=== PATIENT | male | born 1985 | race Caucasian/White ===

== ENCOUNTER 2017-09-13 19:19 | Observation (INO) ==
[2017-09-13] MEDS ORDERED: 0.9 % Sodium Chloride 1,000 ML IVC ONE (19:24)
[2017-09-13 19:52] LABS: Basophils # 0.1 K/mcL (0.0-0.2); Basophils % 0.7 %; Eosinophils # 0.3 K/mcL (0.0-0.6); Eosinophils % 2.4 %; Hemoglobin 15.4 g/dL (12.9-16.9); Immature Granulocytes % 0.4 % (0-4); Lymphocytes # 3.4 K/mcL (0.6-4.6); Lymphocytes % 32.7 %; Mean Corpuscular HGB Conc 35.8 g/dL (31.6-35.5); Mean Corpuscular Hemoglobin 30.3 pg (28.0-33.3); Mean Corpuscular Volume 84.6 fL (83.0-100.0); Mean Platelet Volume 9.9 fL (9.4-12.4); Monocytes % 9.2 %; Neutrophils # 5.7 K/mcL (1.6-8.9); Platelet Count 270 K/mcL (140-400); Red Blood Count 5.08 M/mcL (4.19-5.50); Red Cell Distribution Width 12.3 % (11.5-14.5); Segmented Neutrophils % 54.6 %
--- NOTE | 2017-09-13 19:54 | Emergency Department Note ---
Disposition Clinical Impression: Intentional overdose of drug in tablet form Disposition: Admitted As Inpatient Condition: Fair General Adult HPI - General Chief complaint: ED Overdose Stated complaint: beta sean overdose Time Seen by Provider: 09/13/17 19:24 Source: EMS Mode of arrival: ambulatory Limitations: no limitations Nursing Notes Reviewed: Yes Vital Signs Reviewed: Yes - History of Present Illness HPI Narrative: 32-year-old male presents via EMS for concerns of intentional overdose. Patient states he took 100 mg tablets of metoprolol approximately 10 of those around 4:00 this afternoon. Also took a few of his Serax. Around the same time. Patient denies history of suicidal or homicidal ideation. States that he "wanted to upset his ". Patient denies taking any other medications. Patient denies any chest pain or short of breath. Patient denies any headache. No nausea vomiting. No Abdominal pain. No history of drugs or alcohol. Pain Scale: 0 - Related Data Home Medications Medication Instructions Recorded Confirmed Duloxetine HCl [Cymbalta] 60 mg PO DAILY 09/13/17 09/13/17 Metoprolol Succinate 100 mg PO DAILY 09/13/17 09/13/17 Naproxen [Naprosyn] 500 mg PO Q12H PRN 09/13/17 09/13/17 Sumatriptan [Imitrex] 1 spray NS DAILY PRN 09/13/17 09/13/17 Allergies Allergy/AdvReac Type Severity Reaction Status Date / Time No Known Allergies Allergy Verified 09/13/17 19:29 Past Medical History - Past Medical History Medical history: Reports: hypertension Surgical history: Reports: no surgical history Psychiatric history: Reports: anxiety, depression - Social History Smoking Status: Never smoker Smokeless Tobacco Status: No Alcohol use: Reports: none Drug use: Reports: marijuana Physical Exam - General Limitations: no limitations General appearance: alert, in no apparent distress - Head Head exam: atraumatic, normocephalic, normal inspection - Eye Eye exam: Present: normal appearance, PERRL, EOMI. Absent: nystagmus, miosis, mydriasis - ENT ENT exam: normal exam, normal oropharynx, mucous membranes moist - Neck Neck exam: Present: normal inspection - Chest Chest inspection: Present: normal inspection, symmetric chest wall rise - Respiratory Respiratory exam: Present: normal lung sounds bilaterally. Absent: respiratory distress - Cardiovascular Cardiovascular exam: Present: regular rate, normal rhythm. Absent: systolic murmur - Abdominal Exam Abdominal exam: Present: soft, Non-Tender - Extremities Exam Extremities exam: Present: normal inspection, full ROM. Absent: tenderness, pedal edema - Back Exam Back exam: Present: normal inspection - Neurological Exam Neurological exam: Present: alert, oriented X3, CN II-XII intact - Psychiatric Psychiatric exam: Present: agitated, anxious - Skin Skin exam: Present: warm, dry, intact, normal color Course Course Narrative: Patient seen and examined upon arrival. There is low likelihood her suspicion the patient overdosed on beta blockers given his heart rate physical exam. - Consultations Consultation #1: Patient will be evaluated by psychiatry. Patient has have impulsivity and intermittent aggression. He is pink slipped. Concerns of self-harm. Time: 21:53 Vital Signs Temperature 98.6 F 09/13/17 19:21 Pulse Rate 71 09/13/17 19:21 Respiratory Rate 15 09/13/17 19:21 Blood Pressure 137/97 09/13/17 19:21 O2 Sat by Pulse Oximetry 95 09/13/17 19:21 Temperature 98.3 F 09/13/17 23:40 Pulse Rate 69 09/13/17 23:40 Respiratory Rate 16 09/13/17 23:40 Blood Pressure 135/96 09/13/17 23:40 O2 Sat by Pulse Oximetry 97 09/13/17 20:16 Oxygen Delivery Oxygen Delivery Room Air Medical Decision Making - [facility] Narrative Medical decision making narrative: he was evaluated by psychiatry and deemed the patient would benefit from inpatient hospitalization. Patient will be admitted. There is little concern or suspicion of the patient did take the second dose of metoprolol given his clinical exam. - Lab Data Result diagrams: 09/13/17 19:40 09/13/17 19:40 Lab Results 09/13/17 09/13/17 09/13/17 Range/Units 19:40 19:40 19:50 WBC 10.5 (4.3-11.1) K/mcL RBC 5.08 (4.19-5.50) M/mcL Hgb 15.4 (12.9-16.9) g/dL Hct 43.0 (37.5-50.1) % MCV 84.6 (83.0-100.0) fL MCH 30.3 (28.0-33.3) pg MCHC 35.8 H (31.6-35.5) g/dL RDW 12.3 (11.5-14.5) % Plt Count 270 (140-400) K/mcL MPV 9.9 (9.4-12.4) fL Immature Gran % 0.4 (0-4) % Seg Neutrophils % 54.6 % Lymphocytes % 32.7 % Monocytes % 9.2 % Eosinophils % 2.4 % Basophils % 0.7 % Neutrophils # 5.7 (1.6-8.9) K/mcL Lymphocytes # 3.4 (0.6-4.6) K/mcL Monocytes # 1.0 (0.0-1.3) K/mcL Eosinophils # 0.3 (0.0-0.6) K/mcL Basophils # 0.1 (0.0-0.2) K/mcL Sodium 136 (136-145) mEq/L Potassium 4.0 (3.5-5.1) mEq/L Chloride 100 (98-107) mEq/L Carbon Dioxide 28 (23-29) mEq/L BUN 16 (6-20) mg/dL Creatinine 0.77 (0.70-1.30) mg/dL Est GFR ( Amer) > 60 (> 60) Est GFR (Non-Af Amer) > 60 (> 60) BUN/Creatinine Ratio 21 (6-26) Glucose 100 (70-105) mg/dL Calculated Osmolality 283 (280-300) Calcium 9.6 (8.6-10.3) mg/dL Total Bilirubin 0.6 (0.3-1.0) mg/dL Direct Bilirubin 0.1 (0.0-0.2) mg/dL Indirect Bilirubin 0.5 (0.0-1.2) mg/dL AST 33 (13-39) Units/L ALT 54 H (7-52) Units/L Alkaline Phosphatase 93 (34-104) Units/L Serum Total Protein 7.3 (6.4-8.9) g/dL Albumin 4.1 (3.5-5.7) g/dL Globulin 3.2 (2.4-3.5) g/dL Albumin/Globulin Ratio 1.3 (1.1-2.2) Urine Color Yellow (Yellow) Urine Clarity Clear (Clear) Urine pH 6.0 (5.0-8.0) pH Units Ur Specific [place] 1.030 H (1.010-1.025) Urine Protein Negative (Neg-Trace) mg/dL Urine Glucose (UA) Normal (Normal) mg/dL Urine Ketones Negative (Negative) mg/dL Urine Blood Negative (Negative) Urine Nitrite Negative (Negative) Urine Bilirubin Negative (Negative) Urine Urobilinogen Normal (Normal) mg/dL Ur Leukocyte Esterase Negative (Negative) Salicylates < 5.0 L (15.0-30.0) mg/dL Urine Opiates Screen (Hwxsen=964) ng/mL Acetaminophen < 1.0 L (10-30) mcg/mL Ur Barbiturates Screen (Usxscn=026) ng/mL Ur Phencyclidine Scrn (Cutoff=25) ng/mL Ur Amphetamines Screen (Wyhioz=6556) ng/mL U Benzodiazepines Scrn (Ezsbdf=399) ng/mL Urine Cocaine Screen (Cutoff= 300) ng/mL U Marijuana (THC) Screen (Cutoff = 50) ng/mL Ethyl Alcohol < 10 (0-10) mg/dL 09/13/17 Range/Units 19:50 WBC (4.3-11.1) K/mcL RBC (4.19-5.50) M/mcL Hgb (12.9-16.9) g/dL Hct (37.5-50.1) % MCV (83.0-100.0) fL MCH (28.0-33.3) pg MCHC (31.6-35.5) g/dL RDW (11.5-14.5) % Plt Count (140-400) K/mcL MPV (9.4-12.4) fL Immature Gran % (0-4) % Seg Neutrophils % % Lymphocytes % % Monocytes % % Eosinophils % % Basophils % % Neutrophils # (1.6-8.9) K/mcL Lymphocytes # (0.6-4.6) K/mcL Monocytes # (0.0-1.3) K/mcL Eosinophils # (0.0-0.6) K/mcL Basophils # (0.0-0.2) K/mcL Sodium (136-145) mEq/L Potassium (3.5-5.1) mEq/L Chloride (98-107) mEq/L Carbon Dioxide (23-29) mEq/L BUN (6-20) mg/dL Creatinine (0.70-1.30) mg/dL Est GFR ( Amer) (> 60) Est GFR (Non-Af Amer) (> 60) BUN/Creatinine Ratio (6-26) Glucose (70-105) mg/dL Calculated Osmolality (280-300) Calcium (8.6-10.3) mg/dL Total Bilirubin (0.3-1.0) mg/dL Direct Bilirubin (0.0-0.2) mg/dL Indirect Bilirubin (0.0-1.2) mg/dL AST (13-39) Units/L ALT (7-52) Units/L Alkaline Phosphatase (34-104) Units/L Serum Total Protein (6.4-8.9) g/dL Albumin (3.5-5.7) g/dL Globulin (2.4-3.5) g/dL Albumin/Globulin Ratio (1.1-2.2) Urine Color (Yellow) Urine Clarity (Clear) Urine pH (5.0-8.0) pH Units Ur Specific [place] (1.010-1.025) Urine Protein (Neg-Trace) mg/dL Urine Glucose (UA) (Normal) mg/dL Urine Ketones (Negative) mg/dL Urine Blood (Negative) Urine Nitrite (Negative) Urine Bilirubin (Negative) Urine Urobilinogen (Normal) mg/dL Ur Leukocyte Esterase (Negative) Salicylates (15.0-30.0) mg/dL Urine Opiates Screen Negative (Wrxyuw=163) ng/mL Acetaminophen (10-30) mcg/mL Ur Barbiturates Screen Negative (Fvlbkv=418) ng/mL Ur Phencyclidine Scrn Negative (Cutoff=25) ng/mL Ur Amphetamines Screen Negative (Jxvwda=8143) ng/mL U Benzodiazepines Scrn Positive H (Cyfuid=121) ng/mL Urine Cocaine Screen Negative (Cutoff= 300) ng/mL U Marijuana (THC) Screen Negative (Cutoff = 50) ng/mL Ethyl Alcohol (0-10) mg/dL - EKG Data EKG #1 EKG attestation: Yes I reviewed and interpreted this EKG. EKG shows normal: sinus rhythm Rate: normal Rhythm: NSR [place]/QRS: normal Voltage: c/w LVH Heart block present: 1st Degree T wave inversions noted in: III, v1 Interpretation: no acute changes Attestation Statement - Attestation Attestation: I examined this patient and my medical decision-making was reviewed with the Resident Physician. I agree with the documented findings, disposition and treatment plan as described except to the extent set forth below. Patient was suicidal. Although he gives various stories he denies taking any medications. He does have impulsive behavior and history of suicidality. Plan to admit for psychiatric evaluation. There was no overdose. The patient has no hemodynamic instability.
[2017-09-13 20:04] LABS: Bilirubin,Urine Negative (Negative); Blood,Urine Negative (Negative); Clarity,Urine Clear (Clear); Color,Urine Yellow (Yellow); Glucose,Urine (UA) Normal (Normal); Ketones,Urine Negative (Negative); Leukocyte Esterase,Urine Negative (Negative); Nitrite,Urine Negative (Negative); Protein,Urine Negative (Neg-Trace); Urobilinogen,Urine Normal (Normal)
[2017-09-13 20:07] LABS: Acetaminophen < 1.0 mcg/mL (10-30); Ethanol < 10 mg/dL (0-10); Salicylate < 5.0 mg/dL (15.0-30.0)
[2017-09-13 20:09] LABS: Amphetamine Screen,Urine Negative ng/mL (Cutoff=1000); Barbiturate Screen,Urine Negative ng/mL (Cutoff=200); Benzodiazepines Screen,Urine Positive ng/mL (Cutoff=200); Cannabinoid Screen,Urine Negative ng/mL (Cutoff = 50); Cocaine Screen,Urine Negative ng/mL (Cutoff= 300); Opiate Screen,Urine Negative ng/mL (Cutoff=300); Phencyclidine Screen,Urine Negative ng/mL (Cutoff=25)
[2017-09-13 20:16] LABS: Alanine Aminotransferase 54 Units/L (7-52); Albumin 4.1 g/dL (3.5-5.7); Albumin/Globulin Ratio 1.3 (1.1-2.2); Alkaline Phosphatase 93 Units/L (34-104); Aspartate Amino Transferase 33 Units/L (13-39); BUN/Creatinine Ratio 21 (6-26); Bilirubin,Direct 0.1 mg/dL (0.0-0.2); Bilirubin,Indirect 0.5 mg/dL (0.0-1.2); Bilirubin,Total 0.6 mg/dL (0.3-1.0); Blood Urea Nitrogen 16 mg/dL (6-20); Calcium 9.6 mg/dL (8.6-10.3); Carbon Dioxide 28 mEq/L (23-29); Chloride 100 mEq/L (98-107); Globulin 3.2 g/dL (2.4-3.5); Glucose 100 mg/dL (70-105); Osmolality,Calculated 283 (280-300); Sodium 136 mEq/L (136-145); Total Protein 7.3 g/dL (6.4-8.9); eGFR For African Americans > 60 (> 60); eGFR For Non-African Americans > 60 (> 60)
[2017-09-13] MEDS ORDERED: *HR* LORazepam 1 MG TABLET PO ONE (23:11)
[2017-09-13] MEDS ORDERED: Haloperidol Lactate 5 MG/ML VIAL IM PRN (23:44)
[2017-09-13] MEDS ORDERED: Mag Hydrox/Al Hydrox/Simeth 30 ML UDC PO PRN (23:44)
[2017-09-13] MEDS ORDERED: hydrOXYzine pamoate 25 MG CAPSULE PO PRN (23:44)
[2017-09-13] MEDS ORDERED: *HR* LORazepam 1 MG TABLET PO PRN (23:44)
[2017-09-13] MEDS ORDERED: *HR* LORazepam 2 MG/ML VIAL IM PRN (23:44)
[2017-09-13] MEDS ORDERED: Acetaminophen 325 MG TABLET PO PRN (23:44)
[2017-09-13] MEDS ORDERED: MOM Conc 10 ML UD.LIQ PO PRN (23:44)
[2017-09-13] MEDS ORDERED: traZODone 50 MG TABLET PO PRN (23:58)
[2017-09-14] MEDS ORDERED: SUMATRIPTAN NS PRN (00:03)
[2017-09-14] MEDS ORDERED: BuPROPion XL (24 HR) 150 MG TABLET PO SCH (09:30)
[2017-09-14] MEDS ORDERED: Metoprolol XL (24 HR) Succ 50 MG TAB.ER.24H PO SCH (09:30)
[2017-09-14 12:22] VITALS: BP 145/98
--- NOTE | 2017-09-14 14:03 | Discharge Summary ---
Date of Encounter: 09/14/17 Time of Encounter: 13:40 History of Present Illness Chief complaint: "I told my I was going to take a bunch of pills so she called the shoulder puncher Admitted From: Emergency Dept History of Present Illness: Mr. Cunningham is a 32 year old male who states he told his he was going to take a lot of pills after she moved out of the house and back to her mother's home, so she called the police on him. His moved out of the house yesterday after they had a disagreement when she found out he had been texting another woman that he works with. He denies having an affair. They are having problems in their marriage and she needed some space, so she went to her mother' s house. He states he told her that to manipulate her and get her attention to make her mad. He had no intention to hurt himself. He took a couple of extra Serax for his anxiety and went to bed to take a nap. "That's what it's prescribed for, to help me calm down." He never took any other pills like he said he did. (his UDS was positive for Benzos, but nothing else. His vitals remained normal/stable in the ED and have been normal here so he did not try to overdose on them) He states he had no intention to kill himself and denies ever having thoughts of SI/SIB/HI. He states he has a problem with depression and has as long as he can remember, but it is better and stable on his current medication. He has a 3 year old son whom he loves very much and would never do anything to hurt himself, which would internet consultant hurt his son. "He needs me." He states he takes his medications regularly. Keeps his appointments with Dr. Cristobal and tells me that he never thought something like this would happen by saying what he said. He denies worsening of his depression, just more anxiety recently with the stress in the relationship. He denies mind-reading, A/V hallucinations , paranoia, impulsivity, hypersexuality, gambling issues or going days without sleep or decreased need for sleep. His sleep has been a little off which is why he took the Serax, to nap. He states he does not miss work at [employer] and why he needs to be released so he can get to work this evening. He states he is fine with things as they are in his relationship with his . He will give her the space that she needs to think about things. He has no thoughts of hurting her or anyone else. He understands what he did was dumb and it backfired on him. He denies any thoughts of wanting to hurt himself. He denies having guns in the house, "I don't like guns. They are dangerous and I have a kid at home." He apologizes for what he did and tells me it was all a mistake and keeps requesting to be released. "I won't say anything like that again." Past Med Surg Social Fam HX - Past Medical History Medical history: hypertension, migraine - Past Psychiatric History Psychiatric history: Reports: anxiety, depression Past psychiatric history details: Sees Dr. Cristobal for medications and for therapy every two weeks. He does not miss appointments. His next appointment is in 4 days Family psychiatric history: No Family History of Suicide: None - Past Surgical History Surgical History: no surgical history - Social History Smoking Status: Never smoker Smokeless Tobacco Status: No Alcohol use: none Drug use: marijuana Occupational status: employed Current living situation: Home - Independent Activity Level: Independent ambulation Recent Out of Country Travel Within the Last 8 Weeks: No Exposure or Possible Exposure to Illness During Travel: No - Family History Mother Adopted: [place]: Florian Cunningham Age: 54 Family Member Ethnicity: Non- Living Status: Still Living Hx Family Cardiac Disorders: No Hx Family Respiratory Disorders: No Hx Family Cancer: Yes (uterus) Hx Family GI Disorders: No Hx Family Genitourinary Disorders: No Hx Family Endocrine Disorder: No Hx Family Musculoskeletal Disorders: No Hx Family Neuromuscular Disorders: No Hx Family Neurologic Disorders: No Hx Family HEENT Disorders: No Hx Family Autoimmune Disorders: No Hx Family Reproductive Disorders: No Hx Family Psychosocial Disorders: No Hx Family Medical Disorders: No Grandmother Hx Family Endocrine Disorder: Yes (DM) Medications - Discharge Medications Duloxetine HCl [Cymbalta] 60 mg PO DAILY 09/13/17 [History] Metoprolol Succinate 100 mg PO DAILY 09/13/17 [History] Naproxen [Naprosyn] 500 mg PO Q12H PRN 09/13/17 [History] Sumatriptan [Imitrex] 1 spray NS DAILY PRN 09/13/17 [History] 3 Allergy/AdvReac Type Severity Reaction Status Date / Time No Known Allergies Allergy Verified 09/13/17 19:29 Review of Systems Psychiatric: Reports: depression, anxiety Mental Status Exam - Mental Status Exam Patient orientation: Yes Person, Yes Time, Yes Place, Yes Circumstance Level of alertness: Alert Patient appearance: Appropriate, Well Groomed Behavior: nervous Psychomotor activity: Normal Eye contact: Maintains Eye Contact Mood description: Anxious Affect description: congruent with mood Speech pattern: Normal rate, Normal rhythm, Normal tone, Appropriate Speech Volume: Normal Thought process: Intact, Linear Thought Content: Yes Intact Judgment: Fair Insight: Partial Results - Vital Signs Vital signs: Temp Pulse Resp BP Pulse Ox 98 F 76 16 145/98 97 09/14/17 09:00 09/14/17 09:00 09/14/17 09:00 09/14/17 09:00 09/13/17 20:16 - Labs Labs: Laboratory Last Values WBC 10.5 K/mcL (4.3-11.1) 09/13/17 19:40 RBC 5.08 M/mcL (4.19-5.50) 09/13/17 19:40 Hgb 15.4 g/dL (12.9-16.9) 09/13/17 19:40 Hct 43.0 % (37.5-50.1) 09/13/17 19:40 MCV 84.6 fL (83.0-100.0) 09/13/17 19:40 MCH 30.3 pg (28.0-33.3) 09/13/17 19:40 MCHC 35.8 g/dL (31.6-35.5) H 09/13/17 19:40 RDW 12.3 % (11.5-14.5) 09/13/17 19:40 Plt Count 270 K/mcL (140-400) 09/13/17 19:40 MPV 9.9 fL (9.4-12.4) 09/13/17 19:40 Immature Gran % 0.4 % (0-4) 09/13/17 19:40 Seg Neutrophils % 54.6 % 09/13/17 19:40 Lymphocytes % 32.7 % 09/13/17 19:40 Monocytes % 9.2 % 09/13/17 19:40 Eosinophils % 2.4 % 09/13/17 19:40 Basophils % 0.7 % 09/13/17 19:40 Neutrophils # 5.7 K/mcL (1.6-8.9) 09/13/17 19:40 Lymphocytes # 3.4 K/mcL (0.6-4.6) 09/13/17 19:40 Monocytes # 1.0 K/mcL (0.0-1.3) 09/13/17 19:40 Eosinophils # 0.3 K/mcL (0.0-0.6) 09/13/17 19:40 Basophils # 0.1 K/mcL (0.0-0.2) 09/13/17 19:40 Sodium 136 mEq/L (136-145) 09/13/17 19:40 Potassium 4.0 mEq/L (3.5-5.1) 09/13/17 19:40 Chloride 100 mEq/L (98-107) 09/13/17 19:40 Carbon Dioxide 28 mEq/L (23-29) 09/13/17 19:40 BUN 16 mg/dL (6-20) 09/13/17 19:40 Creatinine 0.77 mg/dL (0.70-1.30) 09/13/17 19:40 Est GFR ( Amer) > 60 (> 60) 09/13/17 19:40 Est GFR (Non-Af Amer) > 60 (> 60) 09/13/17 19:40 BUN/Creatinine Ratio 21 (6-26) 09/13/17 19:40 Glucose 100 mg/dL (70-105) 09/13/17 19:40 Calculated Osmolality 283 (280-300) 09/13/17 19:40 Calcium 9.6 mg/dL (8.6-10.3) 09/13/17 19:40 Total Bilirubin 0.6 mg/dL (0.3-1.0) 09/13/17 19:40 Direct Bilirubin 0.1 mg/dL (0.0-0.2) 09/13/17 19:40 Indirect Bilirubin 0.5 mg/dL (0.0-1.2) 09/13/17 19:40 AST 33 Units/L (13-39) 09/13/17 19:40 ALT 54 Units/L (7-52) H 09/13/17 19:40 Alkaline Phosphatase 93 Units/L (34-104) 09/13/17 19:40 Serum Total Protein 7.3 g/dL (6.4-8.9) 09/13/17 19:40 Albumin 4.1 g/dL (3.5-5.7) 09/13/17 19:40 Globulin 3.2 g/dL (2.4-3.5) 09/13/17 19:40 Albumin/Globulin Ratio 1.3 (1.1-2.2) 09/13/17 19:40 Urine Color Yellow (Yellow) 09/13/17 19:50 Urine Clarity Clear (Clear) 09/13/17 19:50 Urine pH 6.0 pH Units (5.0-8.0) 09/13/17 19:50 Ur Specific [place] 1.030 (1.010-1.025) H 09/13/17 19:50 Urine Protein Negative mg/dL (Neg-Trace) 09/13/17 19:50 Urine Glucose (UA) Normal mg/dL (Normal) 09/13/17 19:50 Urine Ketones Negative mg/dL (Negative) 09/13/17 19:50 Urine Blood Negative (Negative) 09/13/17 19:50 Urine Nitrite Negative (Negative) 09/13/17 19:50 Urine Bilirubin Negative (Negative) 09/13/17 19:50 Urine Urobilinogen Normal mg/dL (Normal) 09/13/17 19:50 Ur Leukocyte Esterase Negative (Negative) 09/13/17 19:50 Salicylates < 5.0 mg/dL (15.0-30.0) L 09/13/17 19:40 Urine Opiates Screen Negative ng/mL (Zwiepf=118) 09/13/17 19:50 Acetaminophen < 1.0 mcg/mL (10-30) L 09/13/17 19:40 Ur Barbiturates Screen Negative ng/mL (Spqyyc=686) 09/13/17 19:50 Ur Phencyclidine Scrn Negative ng/mL (Cutoff=25) 09/13/17 19:50 Ur Amphetamines Screen Negative ng/mL (Yncqgj=4562) 09/13/17 19:50 U Benzodiazepines Scrn Positive ng/mL (Ypyaws=529) H 09/13/17 19:50 Urine Cocaine Screen Negative ng/mL (Cutoff= 300) 09/13/17 19:50 U Marijuana (THC) Screen Negative ng/mL (Cutoff = 50) 09/13/17 19:50 Ethyl Alcohol < 10 mg/dL (0-10) 09/13/17 19:40 Diagnosis - Discharge Diagnosis (1) Major depressive disorder, recurrent, moderate Status: Acute (2) Borderline personality disorder Status: Acute Comments: traits Assessment and Plan - Patient/Caregiver Discharge Instructions Activity: resume usual activities as tolerated Diet: regular diet - Follow up Plan Follow up with: Victor Manuel Cristobal, PhD [Outside] - 09/26/17 2:00 pm (The above appointment is with Dr. Victor Manuel Cristobal for outpatient mental health counseling services. This is the first available appointment. You may contact the office regularly to check for cancellations that may allow you to be seen sooner.) Zulma Boone, LANDSCAPE TECHNICIAN [Advanced Practice Nurse] - 09/20/17 1:30 pm (The above appointment is with Zulma Boone for primary health care and medication management services.) Functional capacity at discharge: independent ambulation Overall status at discharge: Stable Disposition: Home, Self-Care Provider Date of admission: 09/13/17 23:44 Primary care physician: PCP NONE Hospital Course Hospital course: Mr. Cunningham is a 32 year old male (See HPI) Does patient wish to continue nicotine replacement upon disc: No - Time Spent with Patient Total time spent providing and/or coordinating discharge services: 25 min Less than 30 minutes Procedures - Procedures Procedures: Crisis Stabilization, Supportive Therapy, Psychoeducational Therapy Quality - Multiple Antipsychotics Patient discharged on 2 or more antipsychotic medications: No
--- NOTE | 2017-09-14 20:57 | Electrocardiograph Report ---
[address] [place] [address] Test Date: 2017-09-13 Pat Name: Kendall Cunningham Department: 104 Room: 1A23 Gender: M Nurse Head: : [id number] Requested By: Shaquille Zurita Order Number: [id number] Reading MD: Sammy Sinha MD Measurements Intervals [place] Rate: 71 P: 33 [place]: 245 QRS: 2 QRSD: 109 T: 0 QT: 346 QTc: 369 Interpretive Statements SINUS RHYTHM WITH FIRST DEGREE AV BLOCK LEFT ATRIAL ENLARGEMENT LEFT VENTRICULAR HYPERTROPHY Electronically Signed On 09-14-2017 20:55:47 EST by Sammy Sinha MD
== END 2017-09-14 15:25 | disposition home or self-care (01) ==
LOC: EMEROO 19:19 → 1ANU 19:19
PROVIDERS: ADMIT Psychiatry & Neurology Psychiatry; ATTEND Psychiatry & Neurology Psychiatry

== ENCOUNTER 2018-03-28 15:50 | Inpatient (IN) ==
[2018-03-28] MEDS ORDERED: 0.9 % Sodium Chloride 1,000 ML IVC ONE (16:00)
[2018-03-28] MEDS ORDERED: *HR* LORazepam 2 MG/ML VIAL IVP ONE ×2 (16:00→16:47)
--- NOTE | 2018-03-28 16:07 | Emergency Department Note ---
Disposition Clinical Impression: Alcohol withdrawal Qualifiers: Complication of substance-induced condition: uncomplicated Qualified Code(s): F10.230 - Alcohol dependence with withdrawal, uncomplicated Disposition: Admitted As Inpatient Condition: Serious Referrals: NONE,PCP [Primary Care Provider] - Forms: ED Satisfaction Letter Time of Disposition: 17:24 Alcohol HPI - General Chief Complaint: ED Alcohol Abuse Stated Complaint: etoh detox Time Seen by Provider: 03/28/18 15:52 Source: patient Mode of arrival: ambulatory Limitations: no limitations Nursing Notes Reviewed: Yes Vital Signs Reviewed: Yes - History of Present Illness HPI Narrative: 32-year-old male with history of chronic alcohol abuse states he usually binges on alcohol with his last drink just prior to arrival this morning in the shower arrives to the emergency department with desire for alcohol detoxification. The patient thinks that over the past 24 hours sees only had 10 beers. The patient states he normally drinks 24-36 beers per day when he binges. The patient denies any recent fevers, chills, ill feeling. The patient has had some nausea without vomiting and diarrhea which she states is typical of his withdrawals. The patient states he has never been intubated for his withdrawals and is unsure if he is having the seizures. The patient does have history of suicidal ideation but denies any active suicidal ideations at this time. He denies any other drug use or any other complaints at this time. The patient is noted to be tachycardic, hypertensive with a low-grade fever on evaluation. We are very concerned for alcohol withdrawal at this time. The patient has an IV and is receiving IV Ativan at this time. The patient will be placed on [place] protocol as well as the rn cardiac. The patient was made aware that he is getting to be likely admitted to the hospital for further care and he agrees to plan. No further questions or concerns noted. - Related Data Home Medications Medication Instructions Recorded Confirmed Duloxetine HCl [Cymbalta] 60 mg PO DAILY 09/13/17 03/28/18 Metoprolol Succinate 100 mg PO DAILY 09/13/17 03/28/18 Sumatriptan [Imitrex] 1 spray NS DAILY PRN 09/13/17 03/28/18 Omeprazole [PriLOSEC] 40 mg PO DAILY 03/28/18 03/28/18 Oxazepam [Serax] 15 - 30 mg PO TID PRN 03/28/18 03/28/18 Allergies Allergy/AdvReac Type Severity Reaction Status Date / Time No Known Allergies Allergy Verified 09/13/17 19:29 All systems ED: reviewed and negative except as stated. Constitutional: Denies: fever, chills, weakness Eyes: Denies: vision change ENT ED: Denies: dysphagia Cardiovascular: Denies: chest pain Respiratory: Denies: dyspnea Gastrointestinal: Reports: nausea, diarrhea. Denies: abdominal pain, vomiting, constipation, hematemesis, melena, hematochezia Genitourinary: Denies: urgency, dysuria, frequency Musculoskeletal: Denies: back pain, neck pain Integumentary: Denies: rash Neurological: Denies: headache, weakness, numbness, paresthesias, confusion Psychiatric: Reports: anxiety, depression. Denies: suicidal thoughts, homicidal thoughts, auditory hallucinations, visual hallucinations Past Medical History - Past Medical History Attestation: Yes The following information was validated with the patient. Source: patient, old records reviewed Medical history: Reports: hypertension, migraine Surgical history: Reports: no surgical history Psychiatric history: Reports: anxiety, depression - Social History Smoking Status: Never smoker Smokeless Tobacco Status: No Alcohol use: Reports: heavy, recent Last drink: just [employer] Drug use: Reports: marijuana Physical Exam - General Limitations: no limitations General appearance: alert, anxious - Head Head exam: atraumatic, normocephalic, normal inspection - Eye Eye exam: Present: normal appearance, PERRL, EOMI - ENT ENT exam: normal exam, normal oropharynx, mucous membranes moist - Neck Neck exam: Present: normal inspection, full ROM, trachea midline - Chest Chest inspection: Present: normal inspection, symmetric chest wall rise - Respiratory Respiratory exam: Present: normal lung sounds bilaterally - Cardiovascular Cardiovascular exam: Present: normal rhythm, tachycardia, normal heart sounds - Abdominal Exam Abdominal exam: Present: soft, Non-Tender. Absent: tenderness, distention, guarding, rebound, rigidity - Extremities Exam Extremities exam: Present: normal inspection, full ROM. Absent: tenderness, pedal edema - Neurological Exam Neurological exam: Present: alert, oriented X3, CN II-XII intact - Psychiatric Psychiatric exam: Present: anxious - Skin Skin exam: Present: warm, dry, intact, normal color Course Vital Signs Temperature 99.3 F 03/28/18 15:53 Pulse Rate 136 03/28/18 15:53 Respiratory Rate 18 03/28/18 15:53 Blood Pressure 172/125 03/28/18 15:53 O2 Sat by Pulse Oximetry 94 03/28/18 15:53 Temperature 99.3 F 03/28/18 17:18 Pulse Rate 120 03/28/18 17:18 Respiratory Rate 20 03/28/18 17:18 Blood Pressure 148/99 03/28/18 17:18 O2 Sat by Pulse Oximetry 94 03/28/18 17:18 Oxygen Delivery Oxygen Delivery Room Air Alcohol - MDM Narrative Medical decision making narrative: Patient's workup in the emergency department demonstrates an alcohol level of 189. Given the large amount of alcohol the patient drinks every day, I am concerned about alcohol withdrawals. The patient was initially given 2 mg IV Ativan which did help his heart rate slightly but a second dose of 2 mg Ativan brought the patient's heart rate down into the low 100s. He is resting comfortably at this time. He is a current [facility] protocol of to after reevaluation after 4 mg IV Ativan. The patient will be admitted to the hospitalist for further workup and care, accepted by Dr. Guerra. He requested down unit. No further questions or concerns. The patient has had no seizure- like activity. He is currently lucid and resting comfortably in the room. - Lab Data Lab results reviewed: Yes I reviewed the patient's lab results. Result diagrams: 03/28/18 16:21 03/28/18 16:21 Lab Results 03/28/18 03/28/18 03/28/18 Range/Units 16:21 16:21 16:21 WBC 9.1 (4.3-11.1) K/mcL RBC 5.68 H (4.19-5.50) M/mcL Hgb 17.3 H (12.9-16.9) g/dL Hct 48.6 (37.5-50.1) % MCV 85.6 (83.0-100.0) fL MCH 30.5 (28.0-33.3) pg MCHC 35.6 H (31.6-35.5) g/dL RDW 12.5 (11.5-14.5) % Plt Count 291 (140-400) K/mcL MPV 9.8 (9.4-12.4) fL Immature Gran % 0.5 (0-4) % Seg Neutrophils % 63.8 % Lymphocytes % 25.6 % Monocytes % 8.0 % Eosinophils % 1.2 % Basophils % 0.9 % Neutrophils # 5.8 (1.6-8.9) K/mcL Lymphocytes # 2.3 (0.6-4.6) K/mcL Monocytes # 0.7 (0.0-1.3) K/mcL Eosinophils # 0.1 (0.0-0.6) K/mcL Basophils # 0.1 (0.0-0.2) K/mcL Sodium 138 (136-145) mEq/L Potassium 3.5 (3.5-5.1) mEq/L Chloride 102 (98-107) mEq/L Carbon Dioxide 25 (23-29) mEq/L BUN 13 (6-20) mg/dL Creatinine 0.88 (0.70-1.30) mg/dL Est GFR ( Amer) > 60 (> 60) Est GFR (Non-Af Amer) > 60 (> 60) BUN/Creatinine Ratio 15 (6-26) Glucose 146 H (70-105) mg/dL Calculated Osmolality 289 (280-300) Calcium 9.6 (8.6-10.3) mg/dL Total Bilirubin 0.4 (0.3-1.0) mg/dL AST 30 (13-39) Units/L ALT 46 (7-52) Units/L Alkaline Phosphatase 77 (34-104) Units/L Serum Total Protein 8.0 (6.4-8.9) g/dL Albumin 4.6 (3.5-5.7) g/dL Globulin 3.4 (2.4-3.5) g/dL Albumin/Globulin Ratio 1.4 (1.1-2.2) Salicylates < 2.5 L (15.0-30.0) mg/dL Acetaminophen < 10 L (10-20) mcg/mL Ethyl Alcohol 189 H (Less than 10) mg/dL - EKG Data EKG attestation: Yes I reviewed and interpreted this EKG. EKG results narrative: Heart rate 119 beats for minute. Sinus tachycardia. No ST elevation or ST depression noted.
[2018-03-28 16:41] LABS: Basophils # 0.1 K/mcL (0.0-0.2); Basophils % 0.9 %; Eosinophils # 0.1 K/mcL (0.0-0.6); Eosinophils % 1.2 %; Hematocrit 48.6 % (37.5-50.1); Hemoglobin 17.3 g/dL (12.9-16.9); Immature Granulocytes % 0.5 % (0-4); Lymphocytes # 2.3 K/mcL (0.6-4.6); Lymphocytes % 25.6 %; Mean Corpuscular HGB Conc 35.6 g/dL (31.6-35.5); Mean Corpuscular Hemoglobin 30.5 pg (28.0-33.3); Mean Corpuscular Volume 85.6 fL (83.0-100.0); Mean Platelet Volume 9.8 fL (9.4-12.4); Monocytes # 0.7 K/mcL (0.0-1.3); Neutrophils # 5.8 K/mcL (1.6-8.9); Platelet Count 291 K/mcL (140-400); Red Blood Count 5.68 M/mcL (4.19-5.50); Red Cell Distribution Width 12.5 % (11.5-14.5); Segmented Neutrophils % 63.8 %
--- NOTE | 2018-03-28 16:43 | Emergency Department Note ---
Disposition Clinical Impression: Alcohol withdrawal Qualifiers: Complication of substance-induced condition: uncomplicated Qualified Code(s): F10.230 - Alcohol dependence with withdrawal, uncomplicated Disposition: Admitted As Inpatient Referrals: NONE,PCP [Primary Care Provider] - General Adult HPI - General Chief complaint: ED Alcohol Abuse Stated complaint: etoh detox Time Seen by Provider: 03/28/18 15:52 Source: patient Mode of arrival: ambulatory Limitations: no limitations - History of Present Illness Pain Scale: 0 - Related Data Home Medications Medication Instructions Recorded Confirmed Duloxetine HCl [Cymbalta] 60 mg PO DAILY 09/13/17 09/13/17 Metoprolol Succinate 100 mg PO DAILY 09/13/17 09/13/17 Naproxen [Naprosyn] 500 mg PO Q12H PRN 09/13/17 09/13/17 Sumatriptan [Imitrex] 1 spray NS DAILY PRN 09/13/17 09/13/17 Allergies Allergy/AdvReac Type Severity Reaction Status Date / Time No Known Allergies Allergy Verified 09/13/17 19:29 Constitutional: Denies: fever, chills, weakness Eyes: Denies: vision change ENT ED: Denies: dysphagia Cardiovascular: Denies: chest pain Respiratory: Denies: dyspnea Gastrointestinal: Reports: nausea, diarrhea. Denies: abdominal pain, vomiting, constipation, hematemesis, melena, hematochezia Genitourinary: Denies: urgency, dysuria, frequency Musculoskeletal: Denies: back pain, neck pain Integumentary: Denies: rash Neurological: Denies: headache, weakness, numbness, paresthesias, confusion Psychiatric: Reports: anxiety, depression. Denies: suicidal thoughts, homicidal thoughts, auditory hallucinations, visual hallucinations Past Medical History - Past Medical History Medical history: Reports: hypertension, migraine Surgical history: Reports: no surgical history Psychiatric history: Reports: anxiety, depression - Social History Smoking Status: Never smoker Smokeless Tobacco Status: No Alcohol use: Reports: heavy, recent Drug use: Reports: marijuana Physical Exam - General Limitations: no limitations General appearance: alert, anxious Course Vital Signs Temperature 99.3 F 03/28/18 15:53 Pulse Rate 136 03/28/18 15:53 Respiratory Rate 18 03/28/18 15:53 Blood Pressure 172/125 03/28/18 15:53 O2 Sat by Pulse Oximetry 94 03/28/18 15:53 Temperature 99.3 F 03/28/18 15:53 Pulse Rate 136 03/28/18 15:53 Respiratory Rate 18 03/28/18 15:53 Blood Pressure 172/125 03/28/18 15:53 O2 Sat by Pulse Oximetry 94 03/28/18 15:53 Oxygen Delivery Oxygen Delivery Room Air Attestation Statement - Attestation Attestation: I examined this patient and my medical decision-making was reviewed with the Resident Physician. I agree with the documented findings, disposition and treatment plan as described except to the extent set forth below. 32 year old male presents to the ED with complaints of alcohol withdrawl. He states that he typically binge drinsk to the poin of blacking out and has had a histroy of SI/etoh withdrawl in the past such as march 2017/aug 2017. Howveer today he is not SI. Vladimir states that he is starting to have tremors and diaphoreis and is tachycardiac and hypertensive at bedsie with raising temperature. Vladimir larkin is in alcohol withdrawl although his last drink was one can of beer before his shower today. Vladimir will be stablized and given ativan and then admitted to medicine.
[2018-03-28 16:57] LABS: Acetaminophen < 10 mcg/mL (10-20); Alanine Aminotransferase 46 Units/L (7-52); Albumin 4.6 g/dL (3.5-5.7); Albumin/Globulin Ratio 1.4 (1.1-2.2); Alkaline Phosphatase 77 Units/L (34-104); Aspartate Amino Transferase 30 Units/L (13-39); BUN/Creatinine Ratio 15 (6-26); Bilirubin,Total 0.4 mg/dL (0.3-1.0); Blood Urea Nitrogen 13 mg/dL (6-20); Calcium 9.6 mg/dL (8.6-10.3); Carbon Dioxide 25 mEq/L (23-29); Chloride 102 mEq/L (98-107); Ethanol 189 mg/dL (Less than 10); Globulin 3.4 g/dL (2.4-3.5); Glucose 146 mg/dL (70-105); Osmolality,Calculated 289 (280-300); Potassium 3.5 mEq/L (3.5-5.1); Salicylate < 2.5 mg/dL (15.0-30.0); Sodium 138 mEq/L (136-145); eGFR For Non-African Americans > 60 (> 60)
[2018-03-28] MEDS ORDERED: SUMATRIPTAN NS PRN (17:43)
[2018-03-28] MEDS ORDERED: Naloxone 0.4 MG/ML INJ IVP PRN (17:46)
[2018-03-28] MEDS ORDERED: *HR* LORazepam 2 MG/ML VIAL IVP PRN ×2 (18:05)
--- NOTE | 2018-03-28 18:08 | Internal Med History&Physical ---
Date of Encounter: 03/28/18 Time of Encounter: 18:07 Internal Medicine - H&P: HPI History of present illness: Mr. Cunningham is a 32 year old male presented stating that he is withdrawing from alcohol. Patient states he is a binge drinker, and in the past three days has consumed 24 cans per day. He complains of tremors and agitation. He has history of suicidal ideation but denies any thoughts of self harm at this time. He is cooperative with exam. He denies any hallucinations, fevers/chills, neck pain, palpitations. His last drink was earlier in the day shortly before presenting to the ED. He does not drink every day, only binging. He takes metoprolol at home for hypertension and missed his medication doses today. In the ED, patient ethanol level was 189, he was hypertensive and tachycardic with initial vitals on admission of 172/125 with HR 136 bpm. He was given Ativan in ED and currently in no acute distress. Past Med Surg Social Fam HX - Past Medical History Medical history: hypertension, migraine Psychiatric history: anxiety, depression - Past Surgical History Surgical History: no surgical history Additional surgical history: mole removal on right upper arm - Social History Smoking Status: Never smoker Smokeless Tobacco Status: No Alcohol use: heavy, recent Drug use: marijuana - Family History Mother Adopted: No Family Member Ethnicity: Non- Living Status: Still Living Hx Family Cardiac Disorders: No Hx Family Respiratory Disorders: No Hx Family Cancer: Yes (uterus) Hx Family GI Disorders: No Hx Family Endocrine Disorder: No Hx Family Neuromuscular Disorders: No Hx Family Neurologic Disorders: No Hx Family HEENT Disorders: No Hx Family Autoimmune Disorders: No Grandmother Hx Family Endocrine Disorder: Yes (DM) Internal Medicine - H&P: Meds Duloxetine HCl [Cymbalta] 60 mg PO DAILY 09/13/17 [History] Metoprolol Succinate 100 mg PO DAILY 09/13/17 [History] Sumatriptan [Imitrex] 1 spray NS DAILY PRN 09/13/17 [History] Omeprazole [PriLOSEC] 40 mg PO DAILY 03/28/18 [History] Oxazepam [Serax] 15 - 30 mg PO TID PRN 03/28/18 [History] 3 Allergy/AdvReac Type Severity Reaction Status Date / Time No Known Allergies Allergy Verified 09/13/17 19:29 All Systems PM: A 10-system review of systems was performed and is negative for pertinent findings except as documented above in the HPI. - Constitutional Constitutional: no chills, no fever(s), no night sweats - EENT Eyes: no change in vision, no discharge, no pain, no photophobia Nose, mouth and throat: no dysphagia, no nasal discharge, no neck pain, no sore throat - Cardiovascular Cardiovascular ROS IM: no chest pain, no diaphoresis, no dyspnea, no lightheadedness, no palpitations, no syncope - Respiratory Respiratory: no cough, no dyspnea, no wheezing, no excessive phlegm production - Gastrointestinal Gastrointestinal: no abdominal pain, no diarrhea, no hematemesis, no hematochezia, no melena, no nausea, no vomiting - Musculoskeletal Musculoskeletal ROS IM: no numbness, no tingling - Integumentary Integumentary IM: erythema Additional comments: along back, neck and shoulders. States this flushing happens with alcohol drinking. - Neurological Neurological ROS: tremor(s), no confusion, no convulsions, no focal weakness, no numbness, no tingling Additional comments: agitation - Psychiatric Psychiatric: no depression, no homicidal ideation, no suicidal ideation - Constitutional Vitals: Temp Pulse Resp BP Pulse Ox 99.3 F 120 20 148/99 94 03/28/18 17:18 03/28/18 17:18 03/28/18 17:18 03/28/18 17:18 03/28/18 17:18 General appearance: Present: A&O X 3, no acute distress, answers questions appropriately Exam: NAD - Head Head exam: Present: atraumatic, normocephalic - Eye Eye exam: Present: PERRL, conjuntiva pink, sclera anicteric Pupils: Present: PERRL - Neck Neck exam general surgery: Present: supple, trachea midline. Absent: lymphadenopathy - Respiratory Respiratory exam: Present: CTAB. Absent: accessory muscle use, rales, rhonchi, wheezes - Cardiovascular Cardiovascular exam: Present: RRR, +S1, +S2. Absent: diastolic murmur, gallop, rubs, systolic murmur - GI/Abdominal GI/Abdominal exam: Present: normal bowel sounds, soft, no peritoneal signs. Absent: distended, tenderness - Extremities Exam Extremities exam: Present: warm, radial pulses palpable and symmetrical. Absent : calf tenderness, cyanotic, pedal edema - Neurological Exam Neurological exam: Present: CN II-XII intact, oriented X3, no focal deficits. Absent: pronater drift, facial droop, speech deficit - Psychiatric Psychiatric exam: Present: flat affect - Skin Skin exam: Present: dry, erythema (diffuse along back, neck and trunk. States this is flushing from alcohol.), intact Internal Med - H&P Results - Labs CBC & Chem 7: 03/28/18 16:21 03/28/18 16:21 - Assessment and plan (1) Alcohol withdrawal Current Visit: Yes Status: Suspected Assessment and plan: Unsure if this is truly alcohol withdrawal at this time. Patient binges on alcohol for 3 days ut he does not consume it regularly. This may be alcohol intoxication alone with ethanol level 189. However, he does have hypertension and tachycardia. This could be explained by missing dose of hypertensive medications, but patient is high risk, so will start CIWA protocol with Librium taper. Thiamine, Folic acid. Step-down unit with telemetry monitoring. Qualifiers: Complication of substance-induced condition: uncomplicated Qualified Code(s ): F10.230 - Alcohol dependence with withdrawal, uncomplicated (2) Alcohol intoxication Current Visit: No Status: Resolved Assessment and plan: See plan above. Qualifiers: Complication of substance-induced condition: uncomplicated Qualified Code(s ): F10.920 - Alcohol use, unspecified with intoxication, uncomplicated (3) Hypertension Current Visit: No Status: Acute Assessment and plan: Currently BP is 149/90 with HR 112. On admission was 172/125 with HR 136. This could be from alcohol withdrawal or could be from missed medication dose. Continue CIWA protocol, resume metoprolol. Will have IV labetolol prn HTN Qualifiers: Hypertension type: essential hypertension Qualified Code(s): I10 - Essential (primary) hypertension (4) Borderline personality disorder Current Visit: No Status: Acute (5) Depression Current Visit: No Status: Acute Qualifiers: Depression Type: major depressive disorder Major depression recurrence: single episode Active/Remission status: currently active Major depression episode severity: severe Psychotic features: without psychotic features Qualified Code(s): F32.2 - Major depressive disorder, single episode, severe without psychotic features (6) Major depressive disorder, recurrent, moderate Current Visit: No Status: Acute Assessment and plan: Resume cymbalta (7) DVT prophylaxis Current Visit: No Status: Acute Assessment and plan: heparin SQ - Time Spent With Patient Total time spent is greater than 50% in coordination of care (as documented) at patient's floor/unit and/or counseling patient:
[2018-03-28] MEDS ORDERED: *HR* Labetalol 20 MG/4 ML SYRINGE IVP PRN (18:43)
[2018-03-28] MEDS: *HR* LORazepam 2 MG/ML VIAL IVP PRN (21:31)
[2018-03-29] MEDS: *HR* Heparin 5,000 UNIT/ML VIAL SQ SCH ×2 (05:26→20:00)
[2018-03-29 05:38] LABS: Basophils # 0.1 K/mcL (0.0-0.2); Basophils % 0.8 %; Eosinophils # 0.3 K/mcL (0.0-0.6); Eosinophils % 3.1 %; Hematocrit 44.8 % (37.5-50.1); Immature Granulocytes % 0.7 % (0-4); Lymphocytes # 2.6 K/mcL (0.6-4.6); Lymphocytes % 27.7 %; Mean Corpuscular Hemoglobin 30.6 pg (28.0-33.3); Mean Corpuscular Volume 87.3 fL (83.0-100.0); Monocytes # 0.9 K/mcL (0.0-1.3); Monocytes % 9.6 %; Neutrophils # 5.5 K/mcL (1.6-8.9); Platelet Count 239 K/mcL (140-400); Red Blood Count 5.13 M/mcL (4.19-5.50); Red Cell Distribution Width 12.5 % (11.5-14.5); Segmented Neutrophils % 58.1 %
[2018-03-29 05:40] LABS: Hemoglobin 15.7 g/dL (12.9-16.9)
[2018-03-29 06:03] LABS: BUN/Creatinine Ratio 17 (6-26); Blood Urea Nitrogen 13 mg/dL (6-20); Calcium 9.3 mg/dL (8.6-10.3); Carbon Dioxide 25 mEq/L (23-29); Chloride 104 mEq/L (98-107); Glucose 100 mg/dL (70-105); Magnesium 1.9 mg/dL (1.6-2.6); Osmolality,Calculated 286 (280-300); Phosphorous 3.6 mg/dL (2.7-4.5); Potassium 4.2 mEq/L (3.5-5.1); Sodium 138 mEq/L (136-145); eGFR For Non-African Americans > 60 (> 60)
[2018-03-29] MEDS: Thiamine (B-1) 100 MG TABLET PO SCH (09:05)
[2018-03-29] MEDS: Folic Acid 1 MG TABLET PO SCH (09:05)
[2018-03-29] MEDS: Metoprolol XL (24 HR) Succ 50 MG TAB.ER.24H PO SCH (09:06)
--- NOTE | 2018-03-29 09:13 | Internal Med Progress Note ---
<Olegario Guerra - Last Filed: 03/29/18 13:54> Hospitalist Progress Note - Encounter Date of Encounter: 03/29/18 Time of Encounter: 08:40 - Subjective Interval History: Patient seen and examined. He states he had a few episodes of agitation and also nausea overnight. Denies any pain or shortness of breath. No vomiting, diarrhea or constipation - Exam Vitals: Temp Pulse Resp BP Pulse Ox 98.6 F 100 18 136/94 93 03/29/18 06:46 03/29/18 06:46 03/29/18 06:46 03/29/18 06:46 03/29/18 06:46 Exam: GEN: No acute distress HEAD: Atraumatic, normocephalic EYES: Pupils symmetric, sclera white, conjunctiva pink HEART: Regular rate and rhythm, normal S1 and S2, no murmurs LUNGS: CTAB ABD: Soft, nontender, nondistended, bowel sounds present EXT: no edema, erythema, cyanosis NEURO: No focal deficits, cooperative with exam - Assessment and Plan (1) Alcohol withdrawal Current Visit: Yes Status: Acute Assessment and Plan: Patient presented with alcohol level 189 Currently having some episodes of nausea, agitation, tachycardia Will continue CIWA protocol, Librium taper and vitamin supplement Transfer out of 2N to any tele bed today Plan for DC tomorrow if signs of withdrawal continue to improve (2) Hypertension Current Visit: No Status: Acute Assessment and Plan: Improved, as patient was put back on home anti-hypertensives Continue on tele (3) Major depressive disorder, recurrent, moderate Current Visit: No Status: Chronic Assessment and Plan: No suicidal ideations at this time Continue home Cymbalta (4) DVT prophylaxis Current Visit: No Status: Acute Assessment and Plan: Heparin 5000 units BID DVT Prophylaxis: heparin sq - Time Spent with Patient Total time spent is greater than 50% in coordination of care (as documented) at patient's floor/unit and/or counseling patient: Plan of Care Discussed with: patient Internal Medicine: Result - Labs CBC & Chem 7: 03/29/18 04:48 03/29/18 04:48 Labs: Short CBC 03/29/18 Range/Units 04:48 WBC 9.5 (4.3-11.1) K/mcL Hgb 15.7 D (12.9-16.9) g/dL Hct 44.8 (37.5-50.1) % Plt Count 239 (140-400) K/mcL Neutrophils # 5.5 (1.6-8.9) K/mcL [facility] 03/29/18 04:48 Sodium 138 Potassium 4.2 Chloride 104 Carbon Dioxide 25 BUN 13 Creatinine 0.76 Glucose 100 Calcium 9.3 Consult Discharge Plan - Plan Referrals: Zulma Boone, PHOTOGRAPHIC TECHNICIAN [Advanced Practice Nurse] - 04/07/18 3:00 pm <Vasquez Thakkar - Last Filed: 03/29/18 17:18> Hospitalist Progress Note - Encounter Date of Encounter: 03/29/18 - Exam Vitals: Temp Pulse Resp BP Pulse Ox 98.8 F 94 17 149/89 96 03/29/18 14:51 03/29/18 14:51 03/29/18 14:51 03/29/18 14:51 03/29/18 14:51 - Assessment and Plan (1) Alcohol withdrawal Current Visit: Yes Status: Acute (2) Hypertension Current Visit: No Status: Acute (3) DVT prophylaxis Current Visit: No Status: Acute (4) Depression Current Visit: No Status: Acute (5) Alcohol intoxication Current Visit: No Status: Resolved (6) Major depressive disorder, recurrent, moderate Current Visit: No Status: Chronic (7) Borderline personality disorder Current Visit: No Status: Acute - Time Spent with Patient Total time spent is greater than 50% in coordination of care (as documented) at patient's floor/unit and/or counseling patient: Internal Medicine: Result - Labs CBC & Chem 7: 03/29/18 04:48 03/29/18 04:48 Labs: Short CBC 03/29/18 Range/Units 04:48 WBC 9.5 (4.3-11.1) K/mcL Hgb 15.7 D (12.9-16.9) g/dL Hct 44.8 (37.5-50.1) % Plt Count 239 (140-400) K/mcL Neutrophils # 5.5 (1.6-8.9) K/mcL [facility] 03/29/18 04:48 Sodium 138 Potassium 4.2 Chloride 104 Carbon Dioxide 25 BUN 13 Creatinine 0.76 Glucose 100 Calcium 9.3 - Attending Attestation I examined this patient and my medical decision-making was reviewed with the Resident Physician Dr. Guerra. I agree with the documented findings, disposition and treatment plan as described except to the extent set forth below. Mr. Cunningham is a 32 y/o M with known HTN, Migraine, alcohol dependence pt admitted here for alcohol with drawl symptoms. Pt states he is feeling better today. Still has some tremors and anxiety. Gen : A, A, O x 3 Chest: Diminished BS b/l Heart: S1S2+ Tachycardia, no murmurs a/p 1. Acute alcohol with drawl symptoms improving cont CIWA protocol Cont Librium.. will start tapering dose <Olegario Guerra - Last Filed: 03/29/18 13:54> (1) Alcohol withdrawal Qualifiers: Complication of substance-induced condition: uncomplicated Qualified Code(s) : F10.230 - Alcohol dependence with withdrawal, uncomplicated (2) Hypertension Qualifiers: Hypertension type: essential hypertension Qualified Code(s): I10 - Essential (primary) hypertension <Vasquez Thakkar - Last Filed: 03/29/18 17:18> (1) Alcohol withdrawal Qualifiers: Complication of substance-induced condition: uncomplicated Qualified Code(s) : F10.230 - Alcohol dependence with withdrawal, uncomplicated (2) Hypertension Qualifiers: Hypertension type: essential hypertension Qualified Code(s): I10 - Essential (primary) hypertension (4) Depression Qualifiers: Depression Type: major depressive disorder Major depression recurrence: single episode Active/Remission status: currently active Major depression episode severity: severe Psychotic features: without psychotic features Qualified Code(s): F32.2 - Major depressive disorder, single episode, severe without psychotic features (5) Alcohol intoxication Qualifiers: Complication of substance-induced condition: uncomplicated Qualified Code(s) : F10.920 - Alcohol use, unspecified with intoxication, uncomplicated
[2018-03-29] MEDS: *HR* LORazepam 2 MG/ML VIAL IVP PRN (12:24)
--- NOTE | 2018-03-29 16:30 | Electrocardiograph Report ---
[address] [address] Test Date: 2018-03-28 Pat Name: Kendall Cunningham Department: Room: 05 Gender: M [employer]: : [id number] Requested By: Lionel Hathaway Order Number: [id number] Reading MD: Sheri Beach Measurements Intervals [place] Rate: 119 P: 47 OK: 178 QRS: 10 QRSD: 92 T: 58 QT: 293 QTc: 413 Interpretive Statements Sinus tachycardia Electronically Signed On 03-29-2018 16:28:43 EDT by Sheri Beach
[2018-03-29] MEDS ORDERED: *HR* LORazepam 2 MG/ML VIAL IVP ONE (21:17)
[2018-03-30] MEDS: *HR* Heparin 5,000 UNIT/ML VIAL SQ SCH (06:13)
[2018-03-30 06:47] LABS: Bilirubin,Urine Negative (Negative); Blood,Urine Negative (Negative); Clarity,Urine Clear (Clear); Color,Urine Yellow (Yellow); Glucose,Urine (UA) Normal (Normal); Ketones,Urine Negative (Negative); Leukocyte Esterase,Urine Negative (Negative); Nitrite,Urine Negative (Negative); Protein,Urine Negative (Neg-Trace); Specific Gravity,Urine 1.025 (1.010-1.025); Urobilinogen,Urine Normal (Normal)
[2018-03-30] MEDS: Thiamine (B-1) 100 MG TABLET PO SCH (08:22)
[2018-03-30] MEDS: Metoprolol XL (24 HR) Succ 50 MG TAB.ER.24H PO SCH (08:22)
[2018-03-30] MEDS: Folic Acid 1 MG TABLET PO SCH (08:22)
[2018-03-30 11:46] VITALS: BP 130/80
--- NOTE | 2018-03-30 12:34 | Discharge Summary ---
- NOTES TO OUTPATIENT PROVIDER Notes to Outpatient Provider: f/u with PCP in one week. Please quit drinking alcohol. also continue taking tapering dose of Librium Date of Encounter: 03/30/18 Time of Encounter: 12:29 - Discharge Diagnosis (1) Alcohol intoxication Priority: Primary Status: Resolved Qualifiers: Complication of substance-induced condition: uncomplicated Qualified Code(s ): F10.920 - Alcohol use, unspecified with intoxication, uncomplicated (2) Alcohol withdrawal Priority: Primary Status: Acute Qualifiers: Complication of substance-induced condition: uncomplicated Qualified Code(s ): F10.230 - Alcohol dependence with withdrawal, uncomplicated (3) Hypertension Priority: Secondary Status: Acute Qualifiers: Hypertension type: essential hypertension Qualified Code(s): I10 - Essential (primary) hypertension (4) DVT prophylaxis Priority: Secondary Status: Acute (5) Depression Priority: Secondary Status: Acute Qualifiers: Depression Type: major depressive disorder Major depression recurrence: single episode Active/Remission status: currently active Major depression episode severity: severe Psychotic features: without psychotic features Qualified Code(s): F32.2 - Major depressive disorder, single episode, severe without psychotic features (6) Major depressive disorder, recurrent, moderate Priority: Secondary Status: Chronic (7) Borderline personality disorder Priority: Secondary Status: Acute Hospital course: Mr. Cunningham is a 32 year old male with known alcohol dependence pt presented to ER stating that he is withdrawing from alcohol. Patient stated he is a binge drinker, and in the past three days has consumed 24 cans per day. He complains of tremors and agitation. In the ED, patient ethanol level was 189, he was hypertensive and tachycardic with initial vitals on admission of 172/125 with HR 136 bpm. Pt was admitted in the hospital and started him on CIWA protocol and also placed him on high dose Librium. His symptoms started improving slowly , today he is back to baseline, no more withdraw symptoms. So will d/c him home on tapering dose of Librium. Also counseled the pt to quit drinking and provide local rehab centers information by [facility]. - Time Spent with Patient Total time spent providing and/or coordinating discharge services: - Discharge Medications Prescriptions: Chlordiazepoxide [Librium] 25 mg PO QID 8 Days #20 capsule Home Medications: Duloxetine HCl [Cymbalta] 60 mg PO DAILY 09/13/17 [History] Metoprolol Succinate 100 mg PO DAILY 09/13/17 [History] Sumatriptan [Imitrex] 1 spray NS DAILY PRN 09/13/17 [History] Omeprazole [PriLOSEC] 40 mg PO DAILY 03/28/18 [History] Chlordiazepoxide [Librium] 25 mg PO QID 8 Days #20 capsule 03/30/18 [Rx] Allergies/Adverse Reactions: 3 Allergy/AdvReac Type Severity Reaction Status Date / Time No Known Allergies Allergy Verified 09/13/17 19:29 Date of admission: 03/28/18 18:19 Primary care physician: PCP NONE - Constitutional Vitals: Temp Pulse Resp BP Pulse Ox 98.4 F 90 14 130/80 93 03/30/18 11:44 03/30/18 11:44 03/30/18 11:44 03/30/18 11:44 03/30/18 11:44 General appearance: Present: A&O X 3, no acute distress, answers questions appropriately Exam: a - Head Head exam: Present: atraumatic, normal inspection - Neck Neck exam general surgery: Present: supple - Respiratory Respiratory exam: Present: decreased breath sounds. Absent: respiratory distress, rhonchi, wheezes - Cardiovascular Cardiovascular exam: Present: RRR, +S1, +S2. Absent: tachycardia - GI/Abdominal GI/Abdominal exam: Present: normal bowel sounds, soft. Absent: rebound, rigid, tenderness - Extremities Exam Extremities exam: Absent: pedal edema, tenderness - Patient Status Disposition: Home, Self-Care Condition: Good Overall status at discharge: patient is back to baseline - Discharge Instructions Follow Up With: Zulma Boone, SIGNALS COLLECTOR/ANALYST [Advanced Practice Nurse] - 04/07/18 3:00 pm - Diet and Activity Activity: increase activity as tolerated Diet: low salt diet
== END 2018-03-30 15:37 | disposition home or self-care (01) | DRG 897 ==
LOC: EMEROOARM 15:50 → 2NNU 15:50 → 3ANU 03-29 16:50
PROVIDERS: ADMIT Internal Medicine; ATTEND Internal Medicine

== ENCOUNTER 2018-03-31 19:28 | Observation (INO) ==
--- NOTE | 2018-03-31 19:35 | Emergency Department Note ---
Disposition Clinical Impression: Suicidal ideation, Alcohol dependence, Medical clearance for psychiatric admission Disposition: Admitted As Inpatient Condition: Undetermined General Adult HPI - General Stated complaint: SI Time Seen by Provider: 03/31/18 19:32 - Related Data Home Medications Medication Instructions Recorded Confirmed Duloxetine HCl [Cymbalta] 60 mg PO DAILY 09/13/17 03/31/18 Metoprolol Succinate 100 mg PO DAILY 09/13/17 03/31/18 Omeprazole [PriLOSEC] 40 mg PO DAILY 03/28/18 03/31/18 Oxazepam [Serax] 30 mg PO HS 03/31/18 03/31/18 Previous Rx's Medication Instructions Recorded Chlordiazepoxide [Librium] 25 mg PO QID 8 Days #20 capsule 03/30/18 Allergies Allergy/AdvReac Type Severity Reaction Status Date / Time No Known Allergies Allergy Verified 03/31/18 20:54 Past Medical History - Past Medical History Medical history: Reports: hypertension, migraine Surgical history: Reports: no surgical history Psychiatric history: Reports: anxiety, depression - Social History Smoking Status: Never smoker Smokeless Tobacco Status: No Alcohol use: Reports: heavy, recent Drug use: Reports: marijuana Course Vital Signs Temperature 98.2 F 03/31/18 19:31 Pulse Rate 111 03/31/18 19:31 Respiratory Rate 16 03/31/18 19:31 Blood Pressure 142/107 03/31/18 19:31 O2 Sat by Pulse Oximetry 96 03/31/18 19:31 Temperature 98.0 F 04/01/18 19:09 Pulse Rate 102 04/01/18 19:09 Respiratory Rate 16 04/01/18 19:09 Blood Pressure 147/97 04/01/18 19:09 O2 Sat by Pulse Oximetry 95 04/01/18 19:09 Oxygen Delivery Oxygen Delivery Room Air Medical Decision Making - Lab Data Result diagrams: 04/01/18 04:48 04/01/18 04:48 Lab Results 03/31/18 03/31/18 Range/Units 19:52 19:52 WBC 7.3 (4.3-11.1) K/mcL RBC 5.43 (4.19-5.50) M/mcL Hgb 17.1 H (12.9-16.9) g/dL Hct 46.7 (37.5-50.1) % MCV 86.0 (83.0-100.0) fL MCH 31.5 (28.0-33.3) pg MCHC 36.6 H (31.6-35.5) g/dL RDW 12.4 (11.5-14.5) % Plt Count 236 (140-400) K/mcL MPV 9.7 (9.4-12.4) fL Immature Gran % 1.4 (0-4) % Seg Neutrophils % 43.4 % Lymphocytes % 43.5 % Monocytes % 7.7 % Eosinophils % 2.6 % Basophils % 1.4 % Neutrophils # 3.2 (1.6-8.9) K/mcL Lymphocytes # 3.2 (0.6-4.6) K/mcL Monocytes # 0.6 (0.0-1.3) K/mcL Eosinophils # 0.2 (0.0-0.6) K/mcL Basophils # 0.1 (0.0-0.2) K/mcL Sodium 139 (136-145) mEq/L Potassium 3.9 (3.5-5.1) mEq/L Chloride 105 (98-107) mEq/L Carbon Dioxide 24 (23-29) mEq/L BUN 12 (6-20) mg/dL Creatinine 0.78 (0.70-1.30) mg/dL Est GFR ( Amer) > 60 (> 60) Est GFR (Non-Af Amer) > 60 (> 60) BUN/Creatinine Ratio 15 (6-26) Glucose 103 (70-105) mg/dL Calculated Osmolality 288 (280-300) Calcium 9.2 (8.6-10.3) mg/dL Magnesium 2.3 (1.6-2.6) mg/dL Total Bilirubin 0.4 (0.3-1.0) mg/dL AST 38 (13-39) Units/L ALT 50 (7-52) Units/L Alkaline Phosphatase 87 (34-104) Units/L Serum Total Protein 7.9 (6.4-8.9) g/dL Albumin 4.4 (3.5-5.7) g/dL Globulin 3.5 (2.4-3.5) g/dL Albumin/Globulin Ratio 1.3 (1.1-2.2) Salicylates < 2.5 L (15.0-30.0) mg/dL Acetaminophen < 10 L (10-20) mcg/mL Ethyl Alcohol 237 H (Less than 10) mg/dL Attestation Statement - Attestation Attestation: I examined this patient and my medical decision-making was reviewed with the Resident Physician. I agree with the documented findings, disposition and treatment plan as described except to the extent set forth below. [id number] time provided Patient with a known history of alcohol abuse presents after expressing suicidal ideation to the crisis center. Patient is calm upon arrival but it was reported that he was physically combative in route. We will attempt to clear the patient medically for behavioral evaluation. This may be precluded by the fact that the patient has a history of alcohol withdrawal
--- NOTE | 2018-03-31 19:46 | Emergency Department Note ---
Disposition Clinical Impression: Suicidal ideation, Medical clearance for psychiatric admission Alcohol dependence Qualifiers: Substance use status: unspecified alcohol-induced disorder Qualified Code(s): F10.29 - Alcohol dependence with unspecified alcohol-induced disorder Disposition: Admitted As Inpatient Condition: Undetermined Forms: ED Satisfaction Letter Time of Disposition: 20:55 Psych HPI - General Chief Complaint: ED Psychiatric Symptoms Stated Complaint: SI Time Seen by Provider: 03/31/18 19:32 Source: patient, EMS Mode of arrival: EMS Limitations: altered mental status Nursing Notes Reviewed: Yes Vital Signs Reviewed: Yes - History of Present Illness HPI Narrative: 32-year-old male with history of extensive alcohol abuse with previous admissions for alcohol withdrawal, arrives to the emergency department with suicidal ideations. The patient states he drank quite a few beers today and called the suicide hotline has patient was thinking wanted to kill himself. The patient did not answer the door when the police arrived at his house. The please take in a store and noted the patient was in and out of consciousness on the couch. The patient was noted to have a extension cord with a knot tied in a hanging over a door to kill himself. The patient admits to wanting to hang himself. The patient denies any other complaints at this time. He states he did not take any other medications or pills. The patient is intoxicated on evaluation but is answering questions appropriately. Patient was placed on suicidal precautions with a pink slip placed. He was also placed on pulse oximetry and psychiatric or 7 place. The patient will likely be admitted to the hospital with concern for possible alcohol withdrawal versus intoxication this time. - Related Data Home Medications Medication Instructions Recorded Confirmed Duloxetine HCl [Cymbalta] 60 mg PO DAILY 09/13/17 03/28/18 Metoprolol Succinate 100 mg PO DAILY 09/13/17 03/28/18 Sumatriptan [Imitrex] 1 spray NS DAILY PRN 09/13/17 03/28/18 Omeprazole [PriLOSEC] 40 mg PO DAILY 03/28/18 03/28/18 Previous Rx's Medication Instructions Recorded Chlordiazepoxide [Librium] 25 mg PO QID 8 Days #20 capsule 03/30/18 Allergies Allergy/AdvReac Type Severity Reaction Status Date / Time No Known Allergies Allergy Verified 09/13/17 19:29 All systems ED: reviewed and negative except as stated. Constitutional: Denies: fever, chills, weakness ENT ED: Denies: dysphagia Cardiovascular: Denies: chest pain Respiratory: Denies: dyspnea Gastrointestinal: Denies: abdominal pain Genitourinary: Denies: urgency Musculoskeletal: Denies: back pain Integumentary: Denies: rash Neurological: Denies: headache Past Medical History - Past Medical History Attestation: Yes The following information was validated with the patient. Source: patient, old records reviewed Medical history: Reports: hypertension, migraine Surgical history: Reports: no surgical history Psychiatric history: Reports: anxiety, depression - Social History Smoking Status: Never smoker Smokeless Tobacco Status: No Alcohol use: Reports: heavy, recent Drug use: Reports: marijuana Physical Exam - General Limitations: no limitations General appearance: alert, appears intoxicated - Head Head exam: atraumatic, normocephalic, normal inspection - Eye Eye exam: Present: normal appearance, PERRL, EOMI - ENT ENT exam: normal exam, normal oropharynx, mucous membranes moist - Neck Neck exam: Present: normal inspection, full ROM, trachea midline - Chest Chest inspection: Present: normal inspection, symmetric chest wall rise - Respiratory Respiratory exam: Present: normal lung sounds bilaterally - Cardiovascular Cardiovascular exam: Present: regular rate, normal rhythm, normal heart sounds - Abdominal Exam Abdominal exam: Present: soft, Non-Tender. Absent: tenderness, distention, guarding, rebound, rigidity - Extremities Exam Extremities exam: Present: normal inspection, full ROM. Absent: tenderness, pedal edema - Neurological Exam Neurological exam: Present: alert - Expanded Neurological Exam Patient oriented to: Present: person, place, time Speech: Present: fluid speech Cranial nerves: EOM function (II, III, IV, ): Normal, facial sensation (V): Normal, facial palsy (VII): Normal Motor strength - LUE: 5/5 Motor strength - RUE: 5/5 Motor strength - LLE: 5/5 Motor strength - RLE: 5/5 Coma Scale Eye Opening: Spontaneous Coma Scale Motor Response: Obeys Commands Coma Scale Verbal Response: Oriented Coma Scale Total: 15 - Skin Skin exam: Present: warm, dry, intact, normal color Course - Reevaluation(s) Reevaluation #1: Charge nurse was notified from [facility] which is a detox facility. They stated that once the patient is psychiatrically cleared and not spirits and suicidal ideations they will take the patient for detoxification. They are requesting callback at that time with a phone number [phone]. Time: 19:52 Vital Signs Temperature 98.2 F 03/31/18 19:31 Pulse Rate 111 03/31/18 19:31 Respiratory Rate 16 03/31/18 19:31 Blood Pressure 142/107 03/31/18 19:31 O2 Sat by Pulse Oximetry 96 03/31/18 19:31 Temperature 98.2 F 03/31/18 19:31 Pulse Rate 111 03/31/18 19:31 Respiratory Rate 16 03/31/18 19:31 Blood Pressure 142/107 03/31/18 19:31 O2 Sat by Pulse Oximetry 96 03/31/18 19:31 Oxygen Delivery Oxygen Delivery Room Air Psych - MDM Narrative Medical decision making narrative: Patient's workup in the emergency department and streets and out elevated alcohol level. Given the patient's history of withdrawals, I am concerned about the patient being admitted directly to the psychiatric in the patient cannot be currently evaluated by psychiatric team. The patient will be admitted to the hospital at this time for further workup and care. The patient was accepted by Dr. Coyle. Requested telemetry given the patient's current tachycardia and history of alcohol withdrawal. - Lab Data Result diagrams: 03/31/18 19:52 03/31/18 19:52 Lab Results 03/31/18 03/31/18 Range/Units 19:52 19:52 WBC 7.3 (4.3-11.1) K/mcL RBC 5.43 (4.19-5.50) M/mcL Hgb 17.1 H (12.9-16.9) g/dL Hct 46.7 (37.5-50.1) % MCV 86.0 (83.0-100.0) fL MCH 31.5 (28.0-33.3) pg MCHC 36.6 H (31.6-35.5) g/dL RDW 12.4 (11.5-14.5) % Plt Count 236 (140-400) K/mcL MPV 9.7 (9.4-12.4) fL Immature Gran % 1.4 (0-4) % Seg Neutrophils % 43.4 % Lymphocytes % 43.5 % Monocytes % 7.7 % Eosinophils % 2.6 % Basophils % 1.4 % Neutrophils # 3.2 (1.6-8.9) K/mcL Lymphocytes # 3.2 (0.6-4.6) K/mcL Monocytes # 0.6 (0.0-1.3) K/mcL Eosinophils # 0.2 (0.0-0.6) K/mcL Basophils # 0.1 (0.0-0.2) K/mcL Sodium 139 (136-145) mEq/L Potassium 3.9 (3.5-5.1) mEq/L Chloride 105 (98-107) mEq/L Carbon Dioxide 24 (23-29) mEq/L BUN 12 (6-20) mg/dL Creatinine 0.78 (0.70-1.30) mg/dL Est GFR ( Amer) > 60 (> 60) Est GFR (Non-Af Amer) > 60 (> 60) BUN/Creatinine Ratio 15 (6-26) Glucose 103 (70-105) mg/dL Calculated Osmolality 288 (280-300) Calcium 9.2 (8.6-10.3) mg/dL Magnesium 2.3 (1.6-2.6) mg/dL Total Bilirubin 0.4 (0.3-1.0) mg/dL AST 38 (13-39) Units/L ALT 50 (7-52) Units/L Alkaline Phosphatase 87 (34-104) Units/L Serum Total Protein 7.9 (6.4-8.9) g/dL Albumin 4.4 (3.5-5.7) g/dL Globulin 3.5 (2.4-3.5) g/dL Albumin/Globulin Ratio 1.3 (1.1-2.2) Salicylates < 2.5 L (15.0-30.0) mg/dL Acetaminophen < 10 L (10-20) mcg/mL Ethyl Alcohol 237 H (Less than 10) mg/dL Psychiatric Medical Clearance - Medical Clearance Checklist Medical History: No Social History Section defined Current Vitals: Last Vital Signs Temp 98.2 F 03/31/18 19:31 Pulse 111 03/31/18 19:31 Resp 16 03/31/18 19:31 BP 142/107 03/31/18 19:31 Pulse Ox 96 03/31/18 19:31 Psychiatric Lab Panel: Drug Levels and Toxicity 03/31/18 19:52 Acetaminophen < 10 L Ethyl Alcohol 237 H Abnormal Labs: Abnormal lab results Hgb 17.1 g/dL (12.9-16.9) H 03/31/18 19:52 MCHC 36.6 g/dL (31.6-35.5) H 03/31/18 19:52 Salicylates < 2.5 mg/dL (15.0-30.0) L 03/31/18 19:52 Acetaminophen < 10 mcg/mL (10-20) L 03/31/18 19:52 Ethyl Alcohol 237 mg/dL (Less than 10) H 03/31/18 19:52 Statement of Medical Clearance: I have evaluated the patient, reviewed diagnostic information, and certify that the patient's medical condition is sufficiently stable that transfer to the psychiatric unit does not pose a significant risk of deterioration.
[2018-03-31] MEDS ORDERED: diazePAM 10 MG TABLET PO ONE (19:58)
[2018-03-31 20:12] LABS: Basophils # 0.1 K/mcL (0.0-0.2); Basophils % 1.4 %; Eosinophils # 0.2 K/mcL (0.0-0.6); Eosinophils % 2.6 %; Hematocrit 46.7 % (37.5-50.1); Hemoglobin 17.1 g/dL (12.9-16.9); Immature Granulocytes % 1.4 % (0-4); Lymphocytes # 3.2 K/mcL (0.6-4.6); Lymphocytes % 43.5 %; Mean Corpuscular HGB Conc 36.6 g/dL (31.6-35.5); Mean Corpuscular Hemoglobin 31.5 pg (28.0-33.3); Mean Platelet Volume 9.7 fL (9.4-12.4); Monocytes # 0.6 K/mcL (0.0-1.3); Monocytes % 7.7 %; Neutrophils # 3.2 K/mcL (1.6-8.9); Platelet Count 236 K/mcL (140-400); Red Blood Count 5.43 M/mcL (4.19-5.50); Red Cell Distribution Width 12.4 % (11.5-14.5); Segmented Neutrophils % 43.4 %
[2018-03-31 20:25] LABS: Acetaminophen < 10 mcg/mL (10-20); Alanine Aminotransferase 50 Units/L (7-52); Albumin 4.4 g/dL (3.5-5.7); Albumin/Globulin Ratio 1.3 (1.1-2.2); Alkaline Phosphatase 87 Units/L (34-104); Aspartate Amino Transferase 38 Units/L (13-39); BUN/Creatinine Ratio 15 (6-26); Bilirubin,Total 0.4 mg/dL (0.3-1.0); Blood Urea Nitrogen 12 mg/dL (6-20); Calcium 9.2 mg/dL (8.6-10.3); Carbon Dioxide 24 mEq/L (23-29); Chloride 105 mEq/L (98-107); Ethanol 237 mg/dL (Less than 10); Globulin 3.5 g/dL (2.4-3.5); Glucose 103 mg/dL (70-105); Magnesium 2.3 mg/dL (1.6-2.6); Osmolality,Calculated 288 (280-300); Potassium 3.9 mEq/L (3.5-5.1); Salicylate < 2.5 mg/dL (15.0-30.0); Sodium 139 mEq/L (136-145); Total Protein 7.9 g/dL (6.4-8.9); eGFR For Non-African Americans > 60 (> 60)
[2018-03-31] MEDS ORDERED: *HR* LORazepam 2 MG/ML VIAL IVP ONE (20:57)
[2018-04-01 00:26] LABS: Amphetamine Screen,Urine Negative ng/mL (Cutoff=1000); Barbiturate Screen,Urine Negative ng/mL (Cutoff=200); Benzodiazepines Screen,Urine Positive ng/mL (Cutoff=200); Cannabinoid Screen,Urine Negative ng/mL (Cutoff = 50); Cocaine Screen,Urine Negative ng/mL (Cutoff= 300); Opiate Screen,Urine Negative ng/mL (Cutoff=300); Phencyclidine Screen,Urine Negative ng/mL (Cutoff=25)
[2018-04-01] MEDS ORDERED: Naloxone 0.4 MG/ML INJ IVP PRN (02:50)
[2018-04-01] MEDS: 0.9 % Sodium Chloride w KCl 20 MEQ/1,000 ML MLS IVC SCH ×2 (03:37→13:18)
--- NOTE | 2018-04-01 03:37 | Internal Med History&Physical ---
Date of Encounter: 04/01/18 Time of Encounter: 02:15 Internal Medicine - H&P: HPI Chief complaint: suicidal thoughts and alcohol intoxication Admitted From: Emergency Dept Plans for Post Hospital Care: Home History of present illness: Mr. Cunningham is a 32 year old male who presents to the ER tonight acutely intoxicated from alcohol and with suicidal thoughts. He was just recently discharged 3 days ago after being hospitalized for alcohol withdrawal. Since then, he has reportedly been drinking alcohol excessively and having thoughts of suicide. He was admitted to the hospitalist group at that point. He was pink slipped in the ER due to suicidal thoughts. Upon my assessment of the patient, he is somnolent but easily arousable. He admits to being suicidal but has no plan at this time. He states his recently left him thus leading to his thoughts of suicide. He admits to drinking 24 beers prior to admission. He states he binge drinks and has had periods of sobriety. He is a little jittery right now but denies having any other withdrawal symptoms. He states he has been hospitalized multiple times in the past for alcohol withdrawal. He also has had prior suicide attempts as well he states. He denies any fevers, cough, chest pain, shortness breath, vomiting, or diarrhea. Past Med Surg Social Fam HX - Past Medical History Attestation: Yes The following information was validated with the patient. Source: patient, old records reviewed Medical history: hypertension, migraine Psychiatric history: anxiety, depression - Past Surgical History Surgical History: no surgical history Additional surgical history: mole removal on right upper arm - Social History Smoking Status: Never smoker Smokeless Tobacco Status: No Alcohol use: heavy, recent Drug use: marijuana Current living situation: Home Activity Level: Independent ambulation Recent Out of Country Travel Within the Last 8 Weeks: No - Family History Mother Adopted: No Family Member Ethnicity: Non- Living Status: Still Living Hx Family Cardiac Disorders: No Hx Family Respiratory Disorders: No Hx Family Cancer: Yes (uterus) Hx Family GI Disorders: No Hx Family Endocrine Disorder: No Hx Family Neuromuscular Disorders: No Hx Family Neurologic Disorders: No Hx Family HEENT Disorders: No Hx Family Autoimmune Disorders: No Grandmother Hx Family Endocrine Disorder: Yes (DM) Internal Medicine - H&P: Meds Duloxetine HCl [Cymbalta] 60 mg PO DAILY 09/13/17 [History] Metoprolol Succinate 100 mg PO DAILY 09/13/17 [History] Omeprazole [PriLOSEC] 40 mg PO DAILY 03/28/18 [History] Chlordiazepoxide [Librium] 25 mg PO QID 8 Days #20 capsule 03/30/18 [Rx] Oxazepam [Serax] 30 mg PO HS 03/31/18 [History] 3 Allergy/AdvReac Type Severity Reaction Status Date / Time No Known Allergies Allergy Verified 03/31/18 20:54 - Constitutional Constitutional: no chills, no fever(s), no night sweats - EENT Eyes: no blurry vision, no change in vision Ears: no ear pain, no tinnitus Nose, mouth and throat: no nasal congestion, no sore throat - Cardiovascular Cardiovascular ROS IM: no chest pain, no dyspnea, no dyspnea on exertion - Respiratory Respiratory: no cough, no hemoptysis, no chest congestion - Gastrointestinal Gastrointestinal: abdominal pain, nausea, no diarrhea, no hematemesis, no hematochezia, no melena, no vomiting - Genitourinary Genitourinary ROS male: no dysuria, no flank pain, no hematuria - Musculoskeletal Musculoskeletal ROS IM: no arthralgias, no back pain - Integumentary Integumentary IM: no rash - Neurological Neurological ROS: tremor(s), no dizziness, no focal weakness, no frequent falls , no headache(s) - Psychiatric Psychiatric: depression, suicidal ideation - Endocrine Endocrine IM: no polydipsia, no polyuria - Allergic/Immunologic Allergic/Immunologic: no GI upset with certain foods - Constitutional Vitals: Temp Pulse Resp BP Pulse Ox 98.3 F 109 16 126/82 94 04/01/18 02:38 04/01/18 02:38 04/01/18 02:38 04/01/18 02:38 04/01/18 02:38 General appearance: Present: cooperative, disheveled, A&O X 3, answers questions appropriately Exam: somnolent but easily arousable; mildly jittery - Head Head exam: Present: atraumatic, normal inspection - Eye Eye exam: Present: EOMI, PERRL. Absent: scleral icterus Pupils: Present: normal accommodation - ENT ENT exam: Present: mucous membranes dry, normal exam, normal oropharynx - Neck Neck exam general surgery: Present: full ROM, supple. Absent: tenderness, nuchal rigidity, thyromegaly - Respiratory Respiratory exam: Present: CTAB. Absent: chest wall tenderness, rales, rhonchi , wheezes - Cardiovascular Cardiovascular exam: Present: RRR, +S1, +S2, tachycardia. Absent: diastolic murmur, systolic murmur - GI/Abdominal GI/Abdominal exam: Present: normal bowel sounds, tenderness (mild epigastric pain), no peritoneal signs. Absent: guarding, mass, rebound - Extremities Exam Extremities exam: Present: normal capillary refill, radial pulses palpable and symmetrical. Absent: calf tenderness, joint swelling, tenderness, warm - Back Exam Back exam: Absent: CVA tenderness (L), CVA tenderness (R) - Neurological Exam Neurological exam: Present: alert, oriented X3, no focal deficits Additional comments: mildly tremulous - Psychiatric Psychiatric exam: Present: normal affect, normal mood - Skin Skin exam: Present: dry, warm. Absent: rash Internal Med - H&P Results - Labs CBC & Chem 7: 03/31/18 19:52 03/31/18 19:52 - Assessment and plan (1) Suicidal ideation Current Visit: Yes Status: Acute Assessment and plan: 1. Patient is in suicide precautions with 24 hour sitter. 2. Psychiatry consulted an notified. (2) Alcohol intoxication Current Visit: Yes Status: Acute Assessment and plan: 1. Patient with no signs of intoxication at this time other than somnolence. 2. He is at high risk for withdrawal. 3. Will start CIWA protocol. 4. MVI, thiamine, FOlte in IVF. 5. Will order baseline EKG and place on telemetry due to tachycardia. Qualifiers: Complication of substance-induced condition: uncomplicated Qualified Code(s ): F10.920 - Alcohol use, unspecified with intoxication, uncomplicated (3) DVT prophylaxis Current Visit: Yes Status: Acute Assessment and plan: 1. Heparin SQ.
[2018-04-01] MEDS: *HR* Heparin 5,000 UNIT/ML VIAL SQ SCH ×2 (05:25→17:32)
[2018-04-01 05:34] LABS: Basophils # 0.1 K/mcL (0.0-0.2); Basophils % 1.2 %; Eosinophils # 0.2 K/mcL (0.0-0.6); Eosinophils % 2.8 %; Hematocrit 43.4 % (37.5-50.1); Immature Granulocytes % 1.2 % (0-4); Lymphocytes % 43.5 %; Mean Corpuscular HGB Conc 35.5 g/dL (31.6-35.5); Mean Corpuscular Hemoglobin 30.6 pg (28.0-33.3); Mean Corpuscular Volume 86.1 fL (83.0-100.0); Monocytes # 0.7 K/mcL (0.0-1.3); Monocytes % 9.6 %; Neutrophils # 2.8 K/mcL (1.6-8.9); Platelet Count 241 K/mcL (140-400); Red Blood Count 5.04 M/mcL (4.19-5.50); Red Cell Distribution Width 12.7 % (11.5-14.5); Segmented Neutrophils % 41.7 %
[2018-04-01 05:39] LABS: Hemoglobin 15.4 g/dL (12.9-16.9)
[2018-04-01 05:45] LABS: Alanine Aminotransferase 48 Units/L (7-52); Albumin/Globulin Ratio 1.3 (1.1-2.2); Alkaline Phosphatase 74 Units/L (34-104); Aspartate Amino Transferase 33 Units/L (13-39); BUN/Creatinine Ratio 15 (6-26); Bilirubin,Total 0.5 mg/dL (0.3-1.0); Blood Urea Nitrogen 13 mg/dL (6-20); Carbon Dioxide 26 mEq/L (23-29); Chloride 102 mEq/L (98-107); Globulin 3.1 g/dL (2.4-3.5); Glucose 97 mg/dL (70-105); Osmolality,Calculated 286 (280-300); Potassium 3.8 mEq/L (3.5-5.1); Sodium 138 mEq/L (136-145); Total Protein 7.1 g/dL (6.4-8.9); eGFR For Non-African Americans > 60 (> 60)
[2018-04-01] MEDS: *HR* LORazepam 2 MG/ML VIAL IVP PRN ×4 (08:54→18:56)
--- NOTE | 2018-04-01 11:26 | Consult Note ---
Date of Encounter: 04/01/18 Time of Encounter: 10:30 Assessment & Recommendation (1) Alcohol withdrawal Current visit: No Status: Acute Qualifiers: Complication of substance-induced condition: uncomplicated Qualified Code(s ): F10.230 - Alcohol dependence with withdrawal, uncomplicated (2) Depression Current visit: No Status: Acute Qualifiers: Depression Type: major depressive disorder Major depression recurrence: single episode Active/Remission status: currently active Major depression episode severity: severe Psychotic features: without psychotic features Qualified Code(s): F32.2 - Major depressive disorder, single episode, severe without psychotic features (3) Suicidal ideation Current visit: No Status: Resolved History of Present Illness Requesting Physician: Carlos Alberto Christianson MD History of present illness: PEr admission note: 32-year-old male with history of extensive alcohol abuse with previous admissions for alcohol withdrawal, arrives to the emergency department with suicidal ideations. The patient states he drank quite a few beers today and called the suicide hotline has patient was thinking wanted to kill himself. The patient did not answer the door when the police arrived at his house. The please take in a store and noted the patient was in and out of consciousness on the couch. The patient was noted to have a extension cord with a knot tied in a hanging over a door to kill himself. The patient admits to wanting to hang himself. The patient denies any other complaints at this time. He states he did not take any other medications or pills. The patient is intoxicated on evaluation but is answering questions appropriately. Patient was placed on suicidal precautions with a pink slip placed. He was also placed on pulse oximetry and psychiatric or [address] place. The patient will likely be admitted to the hospital with concern for possible alcohol withdrawal versus intoxication this time. Pt is a 33 yo,, male, who presents for Depression and alcohol use D/O. Pt noted that he feels he is still depressed, yet denies any sucidial ideations. Pt noted I still occasionally have thoughts to harm myself ..nothing current though. Pt denied any side effects to current medications. Pt noted he felt safe and comfortable on the unit and will tell staff if things get bad again. Pt was in agreement with current treatment plan. Pt noted that he is doing better today, I was really drunk last night. Pt noted he slept alright last night. Pt noted his appetite is decreased. Pt rated his depression a 2, on a scale of zero to ten with ten being the worst and zero being none. Pt rate his anxiety a 2, on the same scale. Pt denied any visiual or auditory hallucinations. Pt denied any current thoughts to harm himself or anyone else. Pt noted I really need to adjust my depression meds." Pt agreed to start abilify 2 mg PO QAM for mood, pt was educated on the risks benifits and side-effects of current medication including no medications. Pt was in agreement. No TD noted, AIMS=0 Tobacco: 2 ppd Alcohol: 24 beers last night....I usually try to take a few days off Street: denies Caffeine: denies Pt denies any hx of HIV, HepC, TBI or Seizures. 1.Interval hx 2.Continue current medications 3.Review current labs 4.Pt had an opportunity to ask questions and discuss current treatment plan. 5.Supportive therapy was provided 6.Pt encouraged to consider group or individual therapy 7.Pt was in agreement with treatment plan. 8.Pt was educated on the risks benefits and side effects of current medications. 9. Transfer pt to once medically stable. 10 start abilify 2 mg PO QAM for mood give additonal dose now. CC: Carlos Alberto Christianson MD Past Med Surg Social Fam HX - Past Medical History Medical history: hypertension, migraine - Past Psychiatric History Psychiatric history: Reports: depression Family psychiatric history: Yes Family History of Suicide: None - Past Surgical History Surgical History: no surgical history - Social History Smoking Status: Never smoker Smokeless Tobacco Status: No Alcohol use: heavy, recent Drug use: marijuana - Family History Mother Adopted: No Family Member Ethnicity: Non- Living Status: Still Living Hx Family Cardiac Disorders: No Hx Family Respiratory Disorders: No Hx Family Cancer: Yes (uterus) Hx Family GI Disorders: No Hx Family Endocrine Disorder: No Hx Family Neuromuscular Disorders: No Hx Family Neurologic Disorders: No Hx Family HEENT Disorders: No Hx Family Autoimmune Disorders: No Grandmother Hx Family Endocrine Disorder: Yes (DM) Medications & Allergies Duloxetine HCl [Cymbalta] 60 mg PO DAILY 09/13/17 [History] Metoprolol Succinate 100 mg PO DAILY 09/13/17 [History] Omeprazole [PriLOSEC] 40 mg PO DAILY 03/28/18 [History] Chlordiazepoxide [Librium] 25 mg PO QID 8 Days #20 capsule 03/30/18 [Rx] Oxazepam [Serax] 30 mg PO HS 03/31/18 [History] 3 Allergy/AdvReac Type Severity Reaction Status Date / Time No Known Allergies Allergy Verified 03/31/18 20:54 Review of Systems Constitutional: Denies: fever, chills, weakness, weight change Eyes: Denies: eye pain, vision change Ears, Nose, Throat: Denies: ear pain, throat pain, dental pain, hearing loss, congestion Cardiovascular: Denies: chest pain, palpitations, dyspnea on exertion Respiratory: Denies: cough, dyspnea, wheezes Gastrointestinal: Denies: abdominal pain, nausea, vomiting, diarrhea, constipation Genitourinary male: Denies: urgency, dysuria, frequency, genital lesions Musculoskeletal: Denies: joint swelling, joint pain Integumentary: Denies: rash, lesions, pruritus Neurological: Denies: headache, weakness, numbness, memory loss Psychiatric: Reports: depression, anxiety, suicidal ideation Endocrine: Denies: fatigue, heat or cold intolerance Hematologic/Lymphatic: Denies: easy bruising, lymphadenopathy Allergic/Immunologic: Denies: urticaria, itchy eyes Psychiatry Exam - Constitutional Vitals: Temp Pulse Resp BP Pulse Ox 98.5 F 104 18 131/83 92 04/01/18 07:42 04/01/18 07:42 04/01/18 07:42 04/01/18 07:42 04/01/18 08:59 General appearance: age & developmentally appropriate, well-groomed, well- nourished - Musculoskeletal Gait: normal Station: relaxed Strength & Tone: normal for patient - Psychiatric Patient Orientation: Yes Person, Yes Time, Yes Place Level of alertness: Alert Behavior: calm, cooperative, withdrawn Psychomotor activity: Normal Eye Contact: Minimal Contact Mood Description: Depressed Affect description: dysphoric Speech Volume: Normal Speech pattern: normal rate, normal rhythm, normal tone, fluent Language & Vocabulary: consistent with education Thought Process: Logical, Linear Thought Content: Yes Suicidal ideation, No Homicidal ideation Perceptual Disturbances: No Auditory hallucinations, No Visual hallucinations Attention Span Ability: Capable of Focused Attention Memory Description: Grossly Intact Patient Reliability: Questionable Historian Fund of knowledge: Yes average Intelligence Estimate: Average Judgment: Limited Insight: Partial Results - Drug Levels and Toxicology Drug Levels and Toxicology: Drug Levels and Toxicity 03/31/18 23:54 Urine Opiates Screen Negative Ur Barbiturates Screen Negative Ur Phencyclidine Scrn Negative Ur Amphetamines Screen Negative U Benzodiazepines Scrn Positive H Urine Cocaine Screen Negative U Marijuana (THC) Screen Negative - Labs Labs: Laboratory Last Values WBC 6.8 K/mcL (4.3-11.1) 04/01/18 04:48 RBC 5.04 M/mcL (4.19-5.50) 04/01/18 04:48 Hgb 15.4 g/dL (12.9-16.9) D 04/01/18 04:48 Hct 43.4 % (37.5-50.1) 04/01/18 04:48 MCV 86.1 fL (83.0-100.0) 04/01/18 04:48 MCH 30.6 pg (28.0-33.3) 04/01/18 04:48 MCHC 35.5 g/dL (31.6-35.5) 04/01/18 04:48 RDW 12.7 % (11.5-14.5) 04/01/18 04:48 Plt Count 241 K/mcL (140-400) 04/01/18 04:48 MPV 10.0 fL (9.4-12.4) 04/01/18 04:48 Immature Gran % 1.2 % (0-4) 04/01/18 04:48 Seg Neutrophils % 41.7 % 04/01/18 04:48 Lymphocytes % 43.5 % 04/01/18 04:48 Monocytes % 9.6 % 04/01/18 04:48 Eosinophils % 2.8 % 04/01/18 04:48 Basophils % 1.2 % 04/01/18 04:48 Neutrophils # 2.8 K/mcL (1.6-8.9) 04/01/18 04:48 Lymphocytes # 3.0 K/mcL (0.6-4.6) 04/01/18 04:48 Monocytes # 0.7 K/mcL (0.0-1.3) 04/01/18 04:48 Eosinophils # 0.2 K/mcL (0.0-0.6) 04/01/18 04:48 Basophils # 0.1 K/mcL (0.0-0.2) 04/01/18 04:48 Sodium 138 mEq/L (136-145) 04/01/18 04:48 Potassium 3.8 mEq/L (3.5-5.1) 04/01/18 04:48 Chloride 102 mEq/L (98-107) 04/01/18 04:48 Carbon Dioxide 26 mEq/L (23-29) 04/01/18 04:48 BUN 13 mg/dL (6-20) 04/01/18 04:48 Creatinine 0.85 mg/dL (0.70-1.30) 04/01/18 04:48 Est GFR ( Amer) > 60 (> 60) 04/01/18 04:48 Est GFR (Non-Af Amer) > 60 (> 60) 04/01/18 04:48 BUN/Creatinine Ratio 15 (6-26) 04/01/18 04:48 Glucose 97 mg/dL (70-105) 04/01/18 04:48 Calculated Osmolality 286 (280-300) 04/01/18 04:48 Calcium 9.0 mg/dL (8.6-10.3) 04/01/18 04:48 Magnesium 2.0 mg/dL (1.6-2.6) 04/01/18 04:48 Total Bilirubin 0.5 mg/dL (0.3-1.0) 04/01/18 04:48 AST 33 Units/L (13-39) 04/01/18 04:48 ALT 48 Units/L (7-52) 04/01/18 04:48 Alkaline Phosphatase 74 Units/L (34-104) 04/01/18 04:48 Serum Total Protein 7.1 g/dL (6.4-8.9) 04/01/18 04:48 Albumin 4.0 g/dL (3.5-5.7) 04/01/18 04:48 Globulin 3.1 g/dL (2.4-3.5) 04/01/18 04:48 Albumin/Globulin Ratio 1.3 (1.1-2.2) 04/01/18 04:48 Salicylates < 2.5 mg/dL (15.0-30.0) L 03/31/18 19:52 Urine Opiates Screen Negative ng/mL (Qspeqo=599) 03/31/18 23:54 Acetaminophen < 10 mcg/mL (10-20) L 03/31/18 19:52 Ur Barbiturates Screen Negative ng/mL (Vcqjqd=613) 03/31/18 23:54 Ur Phencyclidine Scrn Negative ng/mL (Cutoff=25) 03/31/18 23:54 Ur Amphetamines Screen Negative ng/mL (Dwkmav=9795) 03/31/18 23:54 U Benzodiazepines Scrn Positive ng/mL (Glkbog=123) H 03/31/18 23:54 Urine Cocaine Screen Negative ng/mL (Cutoff= 300) 03/31/18 23:54 U Marijuana (THC) Screen Negative ng/mL (Cutoff = 50) 03/31/18 23:54 Ur Drug Screen Interp See Below 03/31/18 23:54 Ethyl Alcohol 237 mg/dL (Less than 10) H 03/31/18 19:52 Consult Discharge Plan - Plan Referrals: NONE,PCP [Primary Care Provider] -
[2018-04-01] MEDS: ARIPiprazole 2 MG TABLET PO SCH (12:35)
--- NOTE | 2018-04-01 12:49 | Internal Med Progress Note ---
Hospitalist Progress Note - Encounter Date of Encounter: 04/01/18 Time of Encounter: 12:47 - Subjective Interval History: No acute events. Patient denies wanting to hurt himself or others. No hallucinations or paranoid thoughts. Patient states he would like to go home. Tachycardic this AM, denies CP/SOB/N/V/palpitations. - Exam Vitals: Temp Pulse Resp BP Pulse Ox 98.6 F 107 18 155/86 94 04/01/18 12:35 04/01/18 12:35 04/01/18 12:35 04/01/18 12:35 04/01/18 12:35 Exam: Gen: AAOx3, cooperative with exam CVS: tachycardic, no m/r/g Lungs: CTAB Ext: no edema Psych: normal affect Neuro: no focal defecits, no tremors. - Assessment and Plan (1) Alcohol intoxication Current Visit: Yes Status: Acute Assessment and Plan: Continue CIWA protocol. Currently ranges 1-10. No acute withdraw upon my exam. MVI, thiamine, folate. (2) Suicidal ideation Current Visit: Yes Status: Acute Assessment and Plan: Continue Sitter Plan for transfer to when stable (3) DVT prophylaxis Current Visit: Yes Status: Acute Assessment and Plan: Heparin SQ. (4) Hypertension Current Visit: No Status: Acute Assessment and Plan: Resume metoprolol. Will also likely correct tachycardia. - Time Spent with Patient Total time spent is greater than 50% in coordination of care (as documented) at patient's floor/unit and/or counseling patient: Internal Medicine: Result - Labs CBC & Chem 7: 04/01/18 04:48 04/01/18 04:48 Labs: Short CBC 04/01/18 Range/Units 04:48 WBC 6.8 (4.3-11.1) K/mcL Hgb 15.4 D (12.9-16.9) g/dL Hct 43.4 (37.5-50.1) % Plt Count 241 (140-400) K/mcL Neutrophils # 2.8 (1.6-8.9) K/mcL BMP 04/01/18 04:48 Sodium 138 Potassium 3.8 Chloride 102 Carbon Dioxide 26 BUN 13 Creatinine 0.85 Glucose 97 Calcium 9.0 Liver Function 04/01/18 Range/Units 04:48 Total Bilirubin 0.5 (0.3-1.0) mg/dL AST 33 (13-39) Units/L ALT 48 (7-52) Units/L Alkaline Phosphatase 74 (34-104) Units/L Albumin 4.0 (3.5-5.7) g/dL Consult Discharge Plan - Plan Referrals: NONE,PCP [Primary Care Provider] - (1) Alcohol intoxication Qualifiers: Complication of substance-induced condition: uncomplicated Qualified Code(s) : F10.920 - Alcohol use, unspecified with intoxication, uncomplicated (4) Hypertension Qualifiers: Hypertension type: essential hypertension Qualified Code(s): I10 - Essential (primary) hypertension
[2018-04-01] MEDS: Metoprolol XL (24 HR) Succ 50 MG TAB.ER.24H PO SCH (13:18)
[2018-04-01] MEDS ORDERED: Thiamine (B-1) 100 MG, Folic Acid 1 MG, MVI, adult with vitamin K 10 ML in 0.9 % Sodi... IVPB SCH (18:00)
[2018-04-02 04:06] LABS: BUN/Creatinine Ratio 16 (6-26); Blood Urea Nitrogen 15 mg/dL (6-20); Carbon Dioxide 22 mEq/L (23-29); Chloride 105 mEq/L (98-107); Glucose 101 mg/dL (70-105); Osmolality,Calculated 285 (280-300); Potassium 3.7 mEq/L (3.5-5.1); Sodium 137 mEq/L (136-145); eGFR For Non-African Americans > 60 (> 60)
[2018-04-02] MEDS: *HR* Heparin 5,000 UNIT/ML VIAL SQ SCH (05:43)
[2018-04-02] MEDS: ARIPiprazole 2 MG TABLET PO SCH (08:41)
[2018-04-02] MEDS: Metoprolol XL (24 HR) Succ 50 MG TAB.ER.24H PO SCH (08:41)
[2018-04-02] MEDS ORDERED: NON-FORMULARY MEDICATION 1 EACH EACH (Duloxetine Hcl [Cymbalta] 60 MG) PO SCH (09:00)
--- NOTE | 2018-04-02 09:28 | Electrocardiograph Report ---
[address] [address] Test Date: 2018-04-01 Pat Name: Kendall Cunningham Department: 113 Room: 3B Gender: M Disability Examiner: CHUCK : 1985 Requested By: Carlos Alberto Christianson Order Number: [id number] Reading MD: Golden Miller Measurements Intervals [place] Rate: 103 P: 18 WA: 175 QRS: 6 QRSD: 89 T: 5 QT: 327 QTc: 387 Interpretive Statements SINUS TACHYCARDIA Electronically Signed On 04-02-2018 9:27:17 EDT by Golden Miller
--- NOTE | 2018-04-02 11:31 | Internal Med Progress Note ---
Hospitalist Progress Note - Encounter Date of Encounter: 04/02/18 Time of Encounter: 11:25 - Subjective Interval History: Pt seen and examined in the room, sitter at the bedside, he is in good mood and denies suicidal plan and thoughts. He clearly states that he wants to go home and he will not kill himself. I talked to his [id number] and got different story, Pt currently is living alone and has no family support, his is him, he has no place to live. I spoke to patient again, based on his home situation, it is not safe to dc home now. psych was contacted and will see the patient. - Exam Vitals: Temp Pulse Resp BP Pulse Ox 98.4 F 83 16 154/99 95 04/02/18 07:52 04/02/18 07:52 04/02/18 07:52 04/02/18 07:52 04/02/18 08:45 Exam: Gen: AAOx3, cooperative with exam CVS: tachycardic, no m/r/g Lungs: CTAB Ext: no edema Psych: normal affect Neuro: no focal defecits, no tremors. - Assessment and Plan (1) Hypertension Current Visit: No Status: Acute Assessment and Plan: Resume metoprolol. Will also likely correct tachycardia. (2) DVT prophylaxis Current Visit: Yes Status: Acute Assessment and Plan: Heparin SQ. (3) Alcohol intoxication Current Visit: Yes Status: Acute Assessment and Plan: Continue CIWA protocol. Currently ranges 1-10. No acute withdraw upon my exam. MVI, thiamine, folate. (4) Suicidal ideation Current Visit: Yes Status: Acute Assessment and Plan: Continue Sitter Plan for transfer to when stable - Time Spent with Patient Total time spent is greater than 50% in coordination of care (as documented) at patient's floor/unit and/or counseling patient: Greater than 35 minutes Plan of Care Discussed with: patient Internal Medicine: Result - Labs CBC & Chem 7: 04/01/18 04:48 04/02/18 02:32 Labs: BMP 04/02/18 02:32 Sodium 137 Potassium 3.7 Chloride 105 Carbon Dioxide 22 L BUN 15 Creatinine 0.94 Glucose 101 Calcium 9.0 Consult Discharge Plan - Plan Referrals: NONE,PCP [Primary Care Provider] - (1) Hypertension Qualifiers: Hypertension type: essential hypertension Qualified Code(s): I10 - Essential (primary) hypertension (3) Alcohol intoxication Qualifiers: Complication of substance-induced condition: uncomplicated Qualified Code(s) : F10.920 - Alcohol use, unspecified with intoxication, uncomplicated
[2018-04-02 11:36] VITALS: BP 160/95
--- NOTE | 2018-04-02 15:06 | Discharge Summary ---
Orders not resulted at time of discharge: Pending orders 04/03/18 04:00 BMP [Basic Metabolic Panel] AM 0400 04/04/18 04:00 BMP [Basic Metabolic Panel] AM 0400 Date of Encounter: 04/02/18 Time of Encounter: 15:04 - Discharge Diagnosis (1) Hypertension Priority: Secondary Status: Acute Qualifiers: Hypertension type: essential hypertension Qualified Code(s): I10 - Essential (primary) hypertension (2) DVT prophylaxis Priority: Primary Status: Acute (3) Alcohol intoxication Priority: Primary Status: Acute Qualifiers: Complication of substance-induced condition: uncomplicated Qualified Code(s ): F10.920 - Alcohol use, unspecified with intoxication, uncomplicated (4) Suicidal ideation Priority: Primary Status: Acute Hospital course: Mr. Cunningham is a 32 year old male who presents to the ER intoxicated from alcohol and with suicidal thoughts. He was just recently discharged 3 days ago after being hospitalized for alcohol withdrawal. Since then, he has reportedly been drinking alcohol excessively and having thoughts of suicide. He was pink slipped in the ER due to suicidal thoughts. He was placed on CIWA protocol for alcohol withdrawal and intoxication. Psych was consulted and recommended inpatient pysch treatment, after 3 days of medical treatment, he is stable and no signs or symptoms of delirum or withdrawal. He will be transferred to inpatient psych unit today for further management. Discharge discussed with: patient Time spent discussing smoking cessation with patient: more than 10 minutes - Time Spent with Patient Total time spent providing and/or coordinating discharge services: Greater than 30 minutes - Discharge Medications Home Medications: Duloxetine HCl [Cymbalta] 60 mg PO DAILY 09/13/17 [History] Metoprolol Succinate 100 mg PO DAILY 09/13/17 [History] Omeprazole [PriLOSEC] 40 mg PO DAILY 03/28/18 [History] Chlordiazepoxide [Librium] 25 mg PO QID 8 Days #20 capsule 03/30/18 [Rx] Oxazepam [Serax] 30 mg PO HS 03/31/18 [History] ARIPiprazole [Abilify] 2 mg PO DAILY tablet 04/02/18 [Rx] Allergies/Adverse Reactions: 3 Allergy/AdvReac Type Severity Reaction Status Date / Time No Known Allergies Allergy Verified 03/31/18 20:54 Date of admission: 03/31/18 21:05 Primary care physician: PCP NONE Consults: 04/01/18 02:50 Consult to Psychiatry [CONS] Routine Consulting Provider: Psychiatry Padma Reason consult: Sitter/1:1 Other reason and/or additional details: suicidal Call Completed: Yes Anticipated date of discharge: 04/02/18 - Constitutional Vitals: Temp Pulse Resp BP Pulse Ox 97.6 F 91 16 160/95 96 04/02/18 11:32 04/02/18 11:32 04/02/18 11:32 04/02/18 11:32 04/02/18 11:32 General appearance: Present: cooperative, disheveled, A&O X 3, answers questions appropriately Exam: Gen: AAOx3, cooperative with exam CVS: tachycardic, no m/r/g Lungs: CTAB Ext: no edema Psych: normal affect Neuro: no focal defecits, no tremors. - Patient Status Disposition: Transfer Other Condition: Fair Functional capacity at discharge: independent ambulation Overall status at discharge: patient is progressing back to baseline - Discharge Instructions Follow Up With: NONE,PCP [Primary Care Provider] - - Diet and Activity Activity: increase activity as tolerated Diet: advance to your usual diet
== END 2018-04-02 15:54 | disposition other institution (70) ==
LOC: EMEROOARM 19:28 → 3BNU 19:28
PROVIDERS: ADMIT Pediatrics; ATTEND Pediatrics